=== PATIENT | female | born 1955 | race Caucasian/White ===

== ENCOUNTER 2020-06-08 13:58 | Emergency (ER) | payer OTHER ==
[2020-06-08 14:32] VITALS: BMI 25.4
[2020-06-08 19:12] VITALS: BP 123/68; PULSE 86; TEMP 98.5
== END 2020-06-08 20:05 | disposition home or self-care (01) ==
LOC: JER 13:58
DX: L24.89 Irritant contact dermatitis due to other agents (principal)
CPT/HCPCS: 99283-25

== ENCOUNTER 2021-12-30 10:19 | Inpatient (IN) | payer SELFPAY ==
[2021-12-30 10:48] VITALS: BMI 26.5
[2021-12-30] MEDS ORDERED: SODIUM CHLORIDE 0.9% 500 ML INFUS.BAG IV ONE (11:01)
[2021-12-30] MEDS ORDERED: ACETAMINOPHEN 1000 MG/100 ML BAG IVPB ONE (11:02)
[2021-12-30] MEDS ORDERED: ACETAMINOPHEN INJECTION 100 ML IVPB ONE (11:18)
[2021-12-30 11:32] LABS: HEMATOCRIT 33.5 % (32.4-45.2); HEMOGLOBIN 10.7 GM/dL (10.7-15.3); MCH 26.2 pg (25.7-33.7); MEAN PLT VOLUME 7.5 fl (7.5-11.1); PLATELET COUNT 289 10^3/uL (134-434); RBC 4.09 M/mm3 (3.60-5.2); RDW 14.3 % (11.6-15.6); WHITE BLOOD COUNT 23.8 K/mm3 (4.0-10.0)
[2021-12-30 11:37] LABS: VENOUS BASE EXCESS -5.5 mmol/L (-2-2); VENOUS O2 SATURATION 90.2 % (70-80); VENOUS PCO2 31.5 mmHg (38-52); VENOUS PH 7.383 (7.310-7.410)
[2021-12-30 11:44] LABS: ACTIVATED PTT 31.3 SECONDS (25.2-36.5); INR 1.39 (0.83-1.09)
[2021-12-30 11:49] LABS: ALBUMIN 2.7 g/dl (3.4-5.0); BLOOD UREA NITROGEN 33.4 mg/dL (7-18)
[2021-12-30 11:52] LABS: CREATININE 2.3 mg/dL (0.55-1.3)
[2021-12-30 11:54] LABS: BILIRUBIN,TOTAL 0.4 mg/dL (0.2-1); TOT PROT 6.6 g/dl (6.4-8.2)
[2021-12-30] MEDS ORDERED: VANCOMYCIN 1 GM in D5W (PRE-DOCKED) 1,000 MG/250 ML IVPB ONE (12:00)
[2021-12-30] MEDS ORDERED: PIPERACILLIN/TAZOB 3.375 GM 3.375 GM in DEXTROSE 5%-WATER - 50 ML IVPB ONE (12:02)
[2021-12-30] MEDS ORDERED: PIPERACILLIN/TAZOB 3.375 GM 3.375 GM/50 ML BAG IVPB ONE (12:04)
[2021-12-30] MEDS ORDERED: VANCOMYCIN 1 GRAM (PRE-DOCKED) 1,000 MG/250 ML BAG IVPB ONE (12:04)
[2021-12-30 12:28] LABS: EPI CELLS >36 /uL (0-25.1); HYALINE CASTS 17 /uL (0-3.1); PH,URINE 5.5 (5.0-8.0); URINE APPEARANCE TURBID; URINE BACTERIA >9,000 /uL (0-1359); URINE BILIRUBIN NEGATIVE (NEGATIVE); URINE COLOR DK YELLOW; URINE GLUCOSE (UA) NEGATIVE (NEGATIVE); URINE KETONE TRACE (NEGATIVE); URINE LEUK ESTERASE 3+ (NEGATIVE); URINE NITRITE NEGATIVE (NEGATIVE); URINE PROTEIN 3+ (NEGATIVE); URINE RBC 318 /uL (0-23.9); URINE UROBILINOGEN 0.2 mg/dL (0.2-1.0); URINE WBC 25300 /uL (0-25.8)
[2021-12-30 12:55] LABS: ANISOCYTOSIS 2+; MACROCYTOSIS 0; PLATELET ESTIMATE NORMAL
[2021-12-30] MEDS ORDERED: LACTATED RINGERS SOLUTION 1000 ML INFUS.BAG IV ONE ×3 (13:04→20:47)
[2021-12-30] MEDS ORDERED: NOREPINEPHRINE BITARTRATE 16,000 MCG in SODIUM CHLORIDE 484 ML IV SCH (15:45)
[2021-12-30] MEDS ORDERED: ACETAMINOPHEN 325 MG TABLET (FP) PO PRN (16:03)
[2021-12-30] MEDS ORDERED: SODIUM CHLORIDE 1,000 ML IV SCH (16:15)
[2021-12-30] MEDS ORDERED: PIPERACILLIN/TAZOB 2.25 GM 2.25 GM/50 ML BAG IVPB ONE (17:49)
[2021-12-30] MEDS: PIPERACILLIN/TAZOB 2.25 GM 2.25 GM in DEXTROSE 5%-WATER - 50 ML IVPB SCH (17:56)
[2021-12-30] MEDS ORDERED: ACETAMINOPHEN 325 MG TABLET (FP) ONE (18:26)
[2021-12-30] MEDS ORDERED: SODIUM CHLORIDE 1,000 ML IV STA (18:47)
[2021-12-30] MEDS ORDERED: LACTATED RINGERS SOLUTION 1,000 ML/1,000 ML INFUS.BAG IV STA (18:51)
[2021-12-30] MEDS: LACTATED RINGERS SOLUTION 1,000 ML/1,000 ML INFUS.BAG IV SCH (21:00)
[2021-12-30] MEDS: ARTIFICIAL TEARS (POLYVINYL ALCOHOL) OPTH DROPS OU SCH (22:47)
[2021-12-30] MEDS: GABAPENTIN 100 MG CAPSULE PO SCH (22:47)
[2021-12-30] MEDS: HEPARIN NA (PORCINE) 5,000 UNITS/ML 1ML VIAL SQ SCH (22:47)
[2021-12-30] MEDS: ARIPiprazole 15 MG TABLET PO SCH (22:48)
[2021-12-31] MEDS ORDERED: DEXTROSE 5%-WATER - 50 ML IVPB ONE ×4 (01:34→21:19)
[2021-12-31] MEDS ORDERED: PIPERACILLIN/TAZOBACTAM 2.25 GM VIAL IVPB ONE ×4 (01:34→21:19)
[2021-12-31] MEDS: PIPERACILLIN/TAZOB 2.25 GM 2.25 GM in DEXTROSE 5%-WATER - 50 ML IVPB SCH ×8 (01:40→21:21)
[2021-12-31] MEDS: HEPARIN NA (PORCINE) 5,000 UNITS/ML 1ML VIAL SQ SCH ×3 (05:55→22:32)
[2021-12-31 07:25] LABS: HEMATOCRIT 31.9 % (32.4-45.2); HEMOGLOBIN 10.1 GM/dL (10.7-15.3); MCH 26.2 pg (25.7-33.7); MCHC 31.6 g/dl (32.0-36.0); MEAN CELL VOLUME 82.8 fl (80-96); MEAN PLT VOLUME 8.1 fl (7.5-11.1); PLATELET COUNT 260 10^3/uL (134-434); RBC 3.85 M/mm3 (3.60-5.2); RDW 14.5 % (11.6-15.6); WHITE BLOOD COUNT 20.6 K/mm3 (4.0-10.0)
[2021-12-31 07:36] LABS: BLOOD UREA NITROGEN 23.6 mg/dL (7-18); CALCIUM 8.4 mg/dL (8.5-10.1)
[2021-12-31 07:40] LABS: CREATININE 1.6 mg/dL (0.55-1.3)
[2021-12-31] MEDS ORDERED: PNEUMOC 13-VAL CONJ-DIP CRM/PF 0.5 ML DISP.SYRIN IM ONE (10:00)
[2021-12-31] MEDS: GABAPENTIN 100 MG CAPSULE PO SCH ×2 (10:30→21:09)
[2021-12-31] MEDS: ARIPiprazole 15 MG TABLET PO SCH ×2 (10:31→21:09)
[2021-12-31] MEDS: ARTIFICIAL TEARS (POLYVINYL ALCOHOL) OPTH DROPS OU SCH ×2 (10:33→21:09)
[2021-12-31] MEDS ORDERED: ONDANSETRON 4 MG/2 ML VIAL IVPUSH PRN ×2 (16:03→22:10)
[2021-12-31] MEDS ORDERED: ACETAMINOPHEN 325 MG TABLET (FP) PO PRN (22:10)
[2022-01-01] MEDS ORDERED: DEXTROSE 5%-WATER - 50 ML IVPB ONE ×4 (01:39→20:48)
[2022-01-01] MEDS ORDERED: PIPERACILLIN/TAZOBACTAM 2.25 GM VIAL IVPB ONE ×4 (01:39→20:48)
[2022-01-01] MEDS: LACTATED RINGERS SOLUTION 1,000 ML/1,000 ML INFUS.BAG IV SCH ×4 (02:27→22:38)
[2022-01-01] MEDS: PIPERACILLIN/TAZOB 2.25 GM 2.25 GM in DEXTROSE 5%-WATER - 50 ML IVPB SCH ×4 (02:28→22:36)
[2022-01-01] MEDS: HEPARIN NA (PORCINE) 5,000 UNITS/ML 1ML VIAL SQ SCH ×2 (05:21→22:38)
[2022-01-01 08:22] LABS: BASO % 0.4 % (0-2.0); EOS % 1.9 % (0-4.5); HEMATOCRIT 29.7 % (32.4-45.2); HEMOGLOBIN 9.7 GM/dL (10.7-15.3); LYMPH % 15.7 % (8-40); MCHC 32.7 g/dl (32.0-36.0); MEAN CELL VOLUME 82.4 fl (80-96); MEAN PLT VOLUME 7.5 fl (7.5-11.1); MONO % 12.8 % (3.8-10.2); NEUT % 69.2 % (42.8-82.8); PLATELET COUNT 228 10^3/uL (134-434); RBC 3.61 M/mm3 (3.60-5.2); WHITE BLOOD COUNT 9.2 K/mm3 (4.0-10.0)
[2022-01-01 08:36] LABS: CALCIUM 8.6 mg/dL (8.5-10.1)
[2022-01-01 08:37] LABS: BLOOD UREA NITROGEN 18.1 mg/dL (7-18); MAGNESIUM 1.9 mg/dL (1.8-2.4)
[2022-01-01 08:39] LABS: URIC ACID 3.5 mg/dL (2.6-7.2)
[2022-01-01 08:40] LABS: CREATININE 1.5 mg/dL (0.55-1.3)
[2022-01-01 08:41] LABS: BILIRUBIN,TOTAL 0.3 mg/dL (0.2-1); TOT PROT 5.7 g/dl (6.4-8.2)
[2022-01-01] MEDS: GABAPENTIN 100 MG CAPSULE PO SCH ×2 (09:17→22:38)
[2022-01-01] MEDS: ARIPiprazole 15 MG TABLET PO SCH ×2 (09:17→22:37)
[2022-01-01] MEDS: ARTIFICIAL TEARS (POLYVINYL ALCOHOL) OPTH DROPS OU SCH ×2 (10:03→23:31)
[2022-01-02] MEDS ORDERED: DEXTROSE 5%-WATER - 50 ML IVPB ONE ×4 (03:38→19:17)
[2022-01-02] MEDS ORDERED: PIPERACILLIN/TAZOBACTAM 2.25 GM VIAL IVPB ONE ×3 (03:38→13:51)
[2022-01-02] MEDS: PIPERACILLIN/TAZOB 2.25 GM 2.25 GM in DEXTROSE 5%-WATER - 50 ML IVPB SCH ×3 (03:55→14:23)
[2022-01-02] MEDS: HEPARIN NA (PORCINE) 5,000 UNITS/ML 1ML VIAL SQ SCH ×3 (05:19→21:41)
[2022-01-02 09:33] LABS: BASO % 0.8 % (0-2.0); HEMATOCRIT 29.7 % (32.4-45.2); HEMOGLOBIN 9.7 GM/dL (10.7-15.3); LYMPH % 17.3 % (8-40); MCH 26.9 pg (25.7-33.7); MCHC 32.8 g/dl (32.0-36.0); MEAN CELL VOLUME 82.2 fl (80-96); MEAN PLT VOLUME 7.7 fl (7.5-11.1); MONO % 12.1 % (3.8-10.2); NEUT % 67.8 % (42.8-82.8); PLATELET COUNT 264 10^3/uL (134-434); RBC 3.62 M/mm3 (3.60-5.2); RDW 14.5 % (11.6-15.6); WHITE BLOOD COUNT 8.6 K/mm3 (4.0-10.0)
[2022-01-02 10:04] LABS: ALBUMIN 1.9 g/dl (3.4-5.0); CALCIUM 8.3 mg/dL (8.5-10.1); MAGNESIUM 1.9 mg/dL (1.8-2.4)
[2022-01-02 10:07] LABS: BLOOD UREA NITROGEN 17.2 mg/dL (7-18); CREATININE 1.2 mg/dL (0.55-1.3)
[2022-01-02 10:08] LABS: TOT PROT 5.6 g/dl (6.4-8.2)
[2022-01-02 10:09] LABS: BILIRUBIN,TOTAL 0.3 mg/dL (0.2-1)
[2022-01-02] MEDS: GABAPENTIN 100 MG CAPSULE PO SCH ×2 (10:58→21:40)
[2022-01-02] MEDS: ARIPiprazole 15 MG TABLET PO SCH ×2 (10:59→21:40)
[2022-01-02] MEDS: ARTIFICIAL TEARS (POLYVINYL ALCOHOL) OPTH DROPS OU SCH ×2 (11:01→21:43)
[2022-01-02] MEDS ORDERED: cefTRIAXone SODIUM 1 GM VIAL ONE (19:17)
[2022-01-02] MEDS: CEFTRIAXONE 1 GM in DEXTROSE 5%-WATER - 50 ML IVPB SCH (19:23)
[2022-01-03] MEDS: HEPARIN NA (PORCINE) 5,000 UNITS/ML 1ML VIAL SQ SCH ×3 (06:30→21:01)
[2022-01-03 09:14] LABS: BASO % 0.7 % (0-2.0); EOS % 2.5 % (0-4.5); HEMATOCRIT 33.1 % (32.4-45.2); HEMOGLOBIN 10.7 GM/dL (10.7-15.3); MCH 26.3 pg (25.7-33.7); MCHC 32.2 g/dl (32.0-36.0); MEAN CELL VOLUME 81.6 fl (80-96); MEAN PLT VOLUME 7.5 fl (7.5-11.1); MONO % 10.1 % (3.8-10.2); NEUT % 67.7 % (42.8-82.8); PLATELET COUNT 333 10^3/uL (134-434); RBC 4.05 M/mm3 (3.60-5.2); RDW 14.5 % (11.6-15.6); WHITE BLOOD COUNT 8.7 K/mm3 (4.0-10.0)
[2022-01-03] MEDS ORDERED: DEXTROSE 5%-WATER - 50 ML IVPB ONE (09:14)
[2022-01-03] MEDS ORDERED: cefTRIAXone SODIUM 1 GM VIAL ONE (09:14)
[2022-01-03] MEDS: CEFTRIAXONE 1 GM in DEXTROSE 5%-WATER - 50 ML IVPB SCH (09:48)
[2022-01-03] MEDS: GABAPENTIN 100 MG CAPSULE PO SCH ×2 (09:48→21:02)
[2022-01-03] MEDS: ARIPiprazole 15 MG TABLET PO SCH ×2 (09:50→21:03)
[2022-01-03] MEDS: ARTIFICIAL TEARS (POLYVINYL ALCOHOL) OPTH DROPS OU SCH ×2 (10:11→21:04)
[2022-01-03 10:18] LABS: CALCIUM 8.6 mg/dL (8.5-10.1)
[2022-01-03 13:18] LABS: ALBUMIN 2.2 g/dl (3.4-5.0); BILIRUBIN,TOTAL 0.2 mg/dL (0.2-1); BLOOD UREA NITROGEN 17.4 mg/dL (7-18); CREATININE 0.8 mg/dL (0.55-1.3); TOT PROT 6.3 g/dl (6.4-8.2)
[2022-01-04] MEDS: HEPARIN NA (PORCINE) 5,000 UNITS/ML 1ML VIAL SQ SCH ×3 (05:29→22:46)
[2022-01-04 08:44] LABS: BASO % 1.1 % (0-2.0); EOS % 3.6 % (0-4.5); HEMATOCRIT 30.7 % (32.4-45.2); HEMOGLOBIN 10.1 GM/dL (10.7-15.3); LYMPH % 22.3 % (8-40); MCHC 32.9 g/dl (32.0-36.0); MEAN PLT VOLUME 7.4 fl (7.5-11.1); MONO % 11.4 % (3.8-10.2); NEUT % 61.6 % (42.8-82.8); PLATELET COUNT 321 10^3/uL (134-434); RBC 3.75 M/mm3 (3.60-5.2); RDW 14.3 % (11.6-15.6); WHITE BLOOD COUNT 8.5 K/mm3 (4.0-10.0)
[2022-01-04 08:59] LABS: CHLORIDE 106 mmol/L (98-107); SODIUM 139 mmol/L (136-145)
[2022-01-04 09:01] LABS: CALCIUM 8.7 mg/dL (8.5-10.1)
[2022-01-04 09:02] LABS: ALBUMIN 2.1 g/dl (3.4-5.0); ANION GAP 6 MMOL/L (8-16); BLOOD UREA NITROGEN 20.3 mg/dL (7-18); CO2 27 mmol/L (21-32); GLUCOSE,RANDOM 84 mg/dL (74-106); MAGNESIUM 1.9 mg/dL (1.8-2.4)
[2022-01-04 09:05] LABS: CREATININE 1.1 mg/dL (0.55-1.3); SGOT/AST 17 U/L (15-37); SGPT/ALT 24 U/L (13-61)
[2022-01-04 09:07] LABS: BILIRUBIN,TOTAL < 0.1 mg/dL (0.2-1); TOT PROT 5.8 g/dl (6.4-8.2)
[2022-01-04 09:08] LABS: ALK PHOS 129 U/L (45-117)
[2022-01-04] MEDS ORDERED: DEXTROSE 5%-WATER - 50 ML IVPB ONE (12:17)
[2022-01-04] MEDS ORDERED: cefTRIAXone SODIUM 1 GM VIAL ONE (12:17)
[2022-01-04] MEDS: GABAPENTIN 100 MG CAPSULE PO SCH ×2 (12:29→22:46)
[2022-01-04] MEDS: ARTIFICIAL TEARS (POLYVINYL ALCOHOL) OPTH DROPS OU SCH ×2 (12:30→22:48)
[2022-01-04] MEDS: ARIPiprazole 15 MG TABLET PO SCH ×2 (12:30→22:48)
[2022-01-04] MEDS: CEFTRIAXONE 1 GM in DEXTROSE 5%-WATER - 50 ML IVPB SCH (12:30)
[2022-01-05] MEDS: HEPARIN NA (PORCINE) 5,000 UNITS/ML 1ML VIAL SQ SCH ×2 (06:18→15:15)
[2022-01-05] MEDS ORDERED: CEFTRIAXONE 1 GM in DEXTROSE 5%-WATER - 50 ML IVPB SCH (10:00)
[2022-01-05] MEDS ORDERED: cefTRIAXone SODIUM 1 GM VIAL ONE (10:15)
[2022-01-05] MEDS ORDERED: DEXTROSE 5%-WATER - 50 ML IVPB ONE (10:16)
[2022-01-05] MEDS: GABAPENTIN 100 MG CAPSULE PO SCH (10:47)
[2022-01-05] MEDS: ARIPiprazole 15 MG TABLET PO SCH (10:48)
[2022-01-05] MEDS: ARTIFICIAL TEARS (POLYVINYL ALCOHOL) OPTH DROPS OU SCH (10:48)
[2022-01-05 12:08] LABS: SARS-CoV-2 NAA Not Detected (Not Detected)
[2022-01-05 12:41] LABS: BASO % 0.7 % (0-2.0); EOS % 2.4 % (0-4.5); HEMATOCRIT 34.3 % (32.4-45.2); HEMOGLOBIN 11.3 GM/dL (10.7-15.3); LYMPH % 19.6 % (8-40); MCH 27.2 pg (25.7-33.7); MCHC 33.1 g/dl (32.0-36.0); MEAN CELL VOLUME 82.4 fl (80-96); MONO % 8.3 % (3.8-10.2); PLATELET COUNT 384 10^3/uL (134-434); RBC 4.16 M/mm3 (3.60-5.2)
[2022-01-05 13:15] LABS: BLOOD UREA NITROGEN 19.6 mg/dL (7-18); CALCIUM 9.2 mg/dL (8.5-10.1); MAGNESIUM 1.9 mg/dL (1.8-2.4)
[2022-01-05 13:18] LABS: CREATININE 1.1 mg/dL (0.55-1.3)
[2022-01-05 13:19] LABS: BILIRUBIN,TOTAL 0.2 mg/dL (0.2-1)
[2022-01-05 13:22] LABS: ALBUMIN 2.6 g/dl (3.4-5.0)
[2022-01-05 15:05] VITALS: BP 109/68; PULSE 81; TEMP 97.7
== END 2022-01-05 17:30 | disposition home or self-care (01) | DRG 469 ==
LOC: JER 10:19 → JERBED 12:43 → J4W 22:37 → J7W 12-31 22:15
PROVIDERS: ADMIT Internal Medicine; ATTEND Nurse Practitioner Family
PROC: 02HV33Z Insertion of Infusion Device into Superior Vena Cava, Percutaneous Approach (ICD-10-PCS; principal; 2022-01-03)
DX: N17.9 Acute kidney failure, unspecified (principal); N13.6 Pyonephrosis; I24.8 Other forms of acute ischemic heart disease; B96.1 Klebsiella pneumoniae [K. pneumoniae] as the cause of diseases classified elsewhere; Z93.2 Ileostomy status
CPT/HCPCS: 36415; 71045-TC-FY; 74176-TC; 76775-TC; 80048; 80053; 81003; 82803; 83605; 83735; 83970; 84443; 84484; 84550; 85025; 85027; 85610; 85730; 87040; 87086; 87186; 87804; 93005; 93010; 97116-GP; 97162-GP; 99285-25; C9803; J1644; U0003; U0005

== ENCOUNTER 2022-04-18 22:15 | Inpatient (IN) | payer SELFPAY ==
[2022-04-18 22:48] VITALS: BMI 26.2
[2022-04-18] MEDS ORDERED: SODIUM CHLORIDE 1,946 ML IV ONE (23:34)
[2022-04-18] MEDS ORDERED: PIPERACILLIN/TAZOB 4.5 GM 4.5 GM in DEXTROSE 5%-WATER 100 ML IVPB ONE (23:35)
[2022-04-18] MEDS ORDERED: VANCOMYCIN 1 GM in D5W (PRE-DOCKED) 1,000 MG/250 ML IVPB ONE (23:35)
[2022-04-19] MEDS ORDERED: PIPERACILLIN/TAZOB 4.5 GM 4.5 GM/100 ML BAG IVPB ONE (00:07)
[2022-04-19 01:01] LABS: BASO % 0.8 % (0-2.0); EOS % 2.3 % (0-4.5); HEMATOCRIT 36.4 % (32.4-45.2); HEMOGLOBIN 12.1 GM/dL (10.7-15.3); LYMPH % 21.3 % (8-40); MCH 27.2 pg (25.7-33.7); MCHC 33.3 g/dl (32.0-36.0); MEAN CELL VOLUME 81.7 fl (80-96); MEAN PLT VOLUME 7.4 fl (7.5-11.1); MONO % 9.4 % (3.8-10.2); NEUT % 66.2 % (42.8-82.8); PLATELET COUNT 261 10^3/uL (134-434); RBC 4.46 M/mm3 (3.60-5.2); RDW 15.4 % (11.6-15.6); WHITE BLOOD COUNT 10.7 K/mm3 (4.0-10.0)
[2022-04-19 01:06] LABS: INR 1.05 (0.83-1.09); PROTHROMBIN TIME (PATIENT) 12.1 SEC (9.7-13.0)
[2022-04-19 01:08] LABS: ACTIVATED PTT 26.6 SECONDS (25.2-36.5)
[2022-04-19 01:18] LABS: CALCIUM 9.2 mg/dL (8.5-10.1)
[2022-04-19 01:19] LABS: ALBUMIN 3.3 g/dl (3.4-5.0); BLOOD UREA NITROGEN 21.1 mg/dL (7-18)
[2022-04-19 01:22] LABS: CREATININE 1.5 mg/dL (0.55-1.3)
[2022-04-19 01:23] LABS: BILIRUBIN,TOTAL 0.2 mg/dL (0.2-1)
[2022-04-19 01:24] LABS: TOT PROT 7.1 g/dl (6.4-8.2)
[2022-04-19 02:10] LABS: VENOUS BASE EXCESS -5.1 mmol/L (-2-2); VENOUS O2 SATURATION 51.5 % (70-80); VENOUS PCO2 45.2 mmHg (38-52); VENOUS PH 7.294 (7.310-7.410)
[2022-04-19] MEDS ORDERED: VANCOMYCIN 1 GRAM (PRE-DOCKED) 1,000 MG/250 ML BAG IVPB ONE (03:07)
[2022-04-19] MEDS ORDERED: SODIUM CHLORIDE 1,000 ML IV SCH (08:30)
[2022-04-19 10:24] LABS: EPI CELLS 1 /uL (0-25.1); HYALINE CASTS 0 /uL (0-3.1); URINE APPEARANCE CLOUDY; URINE BACTERIA 94 /uL (0-1359); URINE BILIRUBIN NEGATIVE (NEGATIVE); URINE COLOR YELLOW; URINE GLUCOSE (UA) NEGATIVE (NEGATIVE); URINE KETONE NEGATIVE (NEGATIVE); URINE LEUK ESTERASE 3+ (NEGATIVE); URINE NITRITE NEGATIVE (NEGATIVE); URINE PROTEIN TRACE (NEGATIVE); URINE RBC 32 /uL (0-23.9); URINE UROBILINOGEN 0.2 mg/dL (0.2-1.0); URINE WBC 2430 /uL (0-25.8)
[2022-04-19] MEDS ORDERED: NYSTATIN 100,000 UNIT/GM TOPICAL CREAM 15 GM TUBE TP SCH (12:30)
[2022-04-19] MEDS: HEPARIN NA (PORCINE) 5,000 UNITS/ML 1ML VIAL SQ SCH ×2 (15:09→21:32)
[2022-04-19] MEDS: NYSTATIN 100,000 UNIT/GM TOPICAL CREAM 15 GM TUBE TP SCH ×2 (15:09→21:32)
[2022-04-20] MEDS: HEPARIN NA (PORCINE) 5,000 UNITS/ML 1ML VIAL SQ SCH ×3 (06:06→23:02)
[2022-04-20] MEDS ORDERED: DEXTROSE 5%-WATER - 50 ML IVPB ONE (09:26)
[2022-04-20] MEDS ORDERED: cefTRIAXone SODIUM 1 GM VIAL ONE (09:26)
[2022-04-20] MEDS: CEFTRIAXONE 1 GM in DEXTROSE 5%-WATER - 50 ML IVPB SCH (09:27)
[2022-04-20 09:58] LABS: BASO % 0.7 % (0-2.0); EOS % 3.5 % (0-4.5); HEMATOCRIT 34.9 % (32.4-45.2); HEMOGLOBIN 11.3 GM/dL (10.7-15.3); LYMPH % 25.4 % (8-40); MCH 26.8 pg (25.7-33.7); MCHC 32.5 g/dl (32.0-36.0); MEAN CELL VOLUME 82.6 fl (80-96); MEAN PLT VOLUME 7.6 fl (7.5-11.1); MONO % 9.4 % (3.8-10.2); PLATELET COUNT 243 10^3/uL (134-434); RBC 4.22 M/mm3 (3.60-5.2); RDW 15.7 % (11.6-15.6); WHITE BLOOD COUNT 8.3 K/mm3 (4.0-10.0)
[2022-04-20] MEDS ORDERED: PNEUMOC 20-VAL CONJ-DIP CRM/PF 0.5 ML SYRINGE IM ONE (10:00)
[2022-04-20] MEDS: NYSTATIN 100,000 UNIT/GM TOPICAL CREAM 15 GM TUBE TP SCH ×2 (11:32→23:02)
[2022-04-20 12:11] LABS: ALBUMIN 2.7 g/dl (3.4-5.0); CALCIUM 8.9 mg/dL (8.5-10.1)
[2022-04-20 12:13] LABS: MAGNESIUM 1.9 mg/dL (1.8-2.4)
[2022-04-20 12:14] LABS: CREATININE 1.3 mg/dL (0.55-1.3); PHOSPHOROUS 3.5 mg/dL (2.5-4.9)
[2022-04-20 12:15] LABS: BILIRUBIN,TOTAL 0.4 mg/dL (0.2-1)
[2022-04-21] MEDS: HEPARIN NA (PORCINE) 5,000 UNITS/ML 1ML VIAL SQ SCH ×3 (06:22→21:46)
[2022-04-21] MEDS ORDERED: cefTRIAXone SODIUM 1 GM VIAL ONE (09:10)
[2022-04-21] MEDS ORDERED: DEXTROSE 5%-WATER - 50 ML IVPB ONE (09:10)
[2022-04-21] MEDS: CEFTRIAXONE 1 GM in DEXTROSE 5%-WATER - 50 ML IVPB SCH (09:46)
[2022-04-21] MEDS: NYSTATIN 100,000 UNIT/GM TOPICAL CREAM 15 GM TUBE TP SCH ×2 (09:47→21:46)
[2022-04-21 09:53] LABS: BASO % 0.7 % (0-2.0); EOS % 3.8 % (0-4.5); HEMATOCRIT 37.3 % (32.4-45.2); HEMOGLOBIN 12.2 GM/dL (10.7-15.3); MCH 26.9 pg (25.7-33.7); MCHC 32.6 g/dl (32.0-36.0); MEAN CELL VOLUME 82.4 fl (80-96); MEAN PLT VOLUME 7.6 fl (7.5-11.1); MONO % 9.6 % (3.8-10.2); NEUT % 58.9 % (42.8-82.8); PLATELET COUNT 259 10^3/uL (134-434); RBC 4.52 M/mm3 (3.60-5.2); RDW 15.5 % (11.6-15.6); WHITE BLOOD COUNT 7.8 K/mm3 (4.0-10.0)
[2022-04-21 10:11] LABS: CALCIUM 9.2 mg/dL (8.5-10.1)
[2022-04-21 10:12] LABS: BLOOD UREA NITROGEN 17.5 mg/dL (7-18)
[2022-04-21 10:14] LABS: CREATININE 1.2 mg/dL (0.55-1.3)
[2022-04-22] MEDS: HEPARIN NA (PORCINE) 5,000 UNITS/ML 1ML VIAL SQ SCH ×3 (05:27→22:56)
[2022-04-22] MEDS ORDERED: cefTRIAXone SODIUM 1 GM VIAL ONE (10:10)
[2022-04-22] MEDS ORDERED: DEXTROSE 5%-WATER - 50 ML IVPB ONE (10:10)
[2022-04-22] MEDS: CEFTRIAXONE 1 GM in DEXTROSE 5%-WATER - 50 ML IVPB SCH (10:53)
[2022-04-22] MEDS: NYSTATIN 100,000 UNIT/GM TOPICAL CREAM 15 GM TUBE TP SCH ×2 (10:54→23:02)
[2022-04-23] MEDS: HEPARIN NA (PORCINE) 5,000 UNITS/ML 1ML VIAL SQ SCH ×3 (05:36→23:37)
[2022-04-23 08:53] LABS: BASO % 0.9 % (0-2.0); EOS % 5.2 % (0-4.5); HEMATOCRIT 36.8 % (32.4-45.2); HEMOGLOBIN 12.2 GM/dL (10.7-15.3); LYMPH % 29.1 % (8-40); MCH 27.1 pg (25.7-33.7); MEAN CELL VOLUME 82.1 fl (80-96); MEAN PLT VOLUME 7.4 fl (7.5-11.1); MONO % 9.3 % (3.8-10.2); NEUT % 55.5 % (42.8-82.8); PLATELET COUNT 286 10^3/uL (134-434); RBC 4.48 M/mm3 (3.60-5.2); RDW 14.9 % (11.6-15.6); WHITE BLOOD COUNT 8.4 K/mm3 (4.0-10.0)
[2022-04-23 09:36] LABS: BLOOD UREA NITROGEN 26.8 mg/dL (7-18); CREATININE 1.4 mg/dL (0.55-1.3)
[2022-04-23 09:38] LABS: BILIRUBIN,TOTAL 0.2 mg/dL (0.2-1); TOT PROT 6.9 g/dl (6.4-8.2)
[2022-04-23 09:42] LABS: CALCIUM 9.4 mg/dL (8.5-10.1)
[2022-04-23] MEDS ORDERED: cefTRIAXone SODIUM 1 GM VIAL ONE (10:05)
[2022-04-23] MEDS ORDERED: DEXTROSE 5%-WATER - 50 ML IVPB ONE (10:05)
[2022-04-23] MEDS: CEFTRIAXONE 1 GM in DEXTROSE 5%-WATER - 50 ML IVPB SCH (10:47)
[2022-04-23] MEDS: NYSTATIN 100,000 UNIT/GM TOPICAL CREAM 15 GM TUBE TP SCH ×2 (10:49→23:37)
[2022-04-23] MEDS ORDERED: SODIUM CHLORIDE 0.9% 500 ML INFUS.BAG IV ONE (13:19)
[2022-04-24] MEDS: HEPARIN NA (PORCINE) 5,000 UNITS/ML 1ML VIAL SQ SCH (05:41)
[2022-04-24] MEDS ORDERED: cefTRIAXone SODIUM 1 GM VIAL ONE (11:10)
[2022-04-24] MEDS ORDERED: DEXTROSE 5%-WATER - 50 ML IVPB ONE (11:10)
[2022-04-24] MEDS: CEFTRIAXONE 1 GM in DEXTROSE 5%-WATER - 50 ML IVPB SCH (11:14)
[2022-04-24] MEDS: NYSTATIN 100,000 UNIT/GM TOPICAL CREAM 15 GM TUBE TP SCH (11:15)
[2022-04-24 13:04] VITALS: BP 128/61; PULSE 80; TEMP 98.2
== END 2022-04-24 12:40 | disposition home or self-care (01) | DRG 252 ==
LOC: JER 22:15 → JERBED 04-19 05:05 → J5S 04-19 10:03 → J5WEST-2 04-19 15:39 → J5S 04-19 15:40
PROVIDERS: ADMIT Internal Medicine; ATTEND Internal Medicine
DX: K94.13 Enterostomy malfunction (principal); N17.9 Acute kidney failure, unspecified; N13.30 Unspecified hydronephrosis; L03.311 Cellulitis of abdominal wall; N39.0 Urinary tract infection, site not specified; K51.90 Ulcerative colitis, unspecified, without complications; F42.9 Obsessive-compulsive disorder, unspecified; Y83.8 Other surgical procedures as the cause of abnormal reaction of the patient, or of later complication, without mention of misadventure at the time of the procedure
CPT/HCPCS: 36415; 71045-TC-FY; 74176-TC; 76775-TC; 80048; 80053; 81003; 82436; 82553; 82803; 83605; 83735; 83935; 84100; 84133; 84300; 84443; 85025; 85610; 85730; 86850; 86900; 86901; 87040; 87086; 87186; 90677; 93005; 93010; 97116-GP; 99285-25; C9803-CS; J1644; U0003; U0005

== ENCOUNTER 2022-04-26 08:32 | Emergency (ER) | payer SELFPAY ==
[2022-04-26 08:53] VITALS: BMI 26.2
[2022-04-26 11:00] VITALS: BP 135/77; PULSE 98; TEMP 98.3
== END 2022-04-26 10:59 | disposition home or self-care (01) ==
LOC: JER 08:32
DX: K94.09 Other complications of colostomy (principal)
CPT/HCPCS: 99283-25

== ENCOUNTER 2022-05-09 23:15 | Emergency (ER) | payer SELFPAY ==
[2022-05-10 00:42] VITALS: BMI 32.0
[2022-05-10 09:48] VITALS: BP 117/72; PULSE 74; TEMP 98.4
== END 2022-05-10 09:45 | disposition home or self-care (01) ==
LOC: JER 23:15
DX: K94.09 Other complications of colostomy (principal)
CPT/HCPCS: 99283-25

== ENCOUNTER 2022-06-17 12:51 | Emergency (ER) | payer SELFPAY ==
[2022-06-17 13:07] VITALS: RESP 20; BMI 27.4
[2022-06-17 17:23] VITALS: BP 121/71; PULSE 81; TEMP 97.5
== END 2022-06-17 17:23 | disposition home or self-care (01) ==
LOC: JER 12:51
DX: K94.13 Enterostomy malfunction (principal); R21 Rash and other nonspecific skin eruption; Z43.2 Encounter for attention to ileostomy
CPT/HCPCS: 99281-25

== ENCOUNTER 2022-08-21 20:15 | Inpatient (IN) | payer SELFPAY ==
[2022-08-21 21:42] LABS: BASO % 0.8 % (0-2.0); EOS % 0.4 % (0-4.5); HEMATOCRIT 42.6 % (32.4-45.2); LYMPH % 13.5 % (8-40); MCH 27.2 pg (25.7-33.7); MCHC 32.8 g/dl (32.0-36.0); MEAN CELL VOLUME 82.8 fl (80-96); MEAN PLT VOLUME 7.1 fl (7.5-11.1); MONO % 6.8 % (3.8-10.2); NEUT % 78.5 % (42.8-82.8); PLATELET COUNT 325 10^3/uL (134-434); RBC 5.14 M/mm3 (3.60-5.2); RDW 14.9 % (11.6-15.6); WHITE BLOOD COUNT 14.5 K/mm3 (4.0-10.0)
[2022-08-21 22:09] LABS: ALBUMIN 3.5 g/dl (3.4-5.0); BLOOD UREA NITROGEN 22.8 mg/dL (7-18)
[2022-08-21 22:12] LABS: CREATININE 1.3 mg/dL (0.55-1.3)
[2022-08-21 22:14] LABS: BILIRUBIN,TOTAL 0.3 mg/dL (0.2-1); TOT PROT 7.5 g/dl (6.4-8.2)
[2022-08-22 01:09] LABS: EPI CELLS 24 /uL (0-25.1); HYALINE CASTS 1 /uL (0-3.1); PH,URINE 5.5 (5.0-8.0); URINE APPEARANCE CLEAR; URINE BACTERIA 11 /uL (0-1359); URINE BILIRUBIN NEGATIVE (NEGATIVE); URINE COLOR YELLOW; URINE GLUCOSE (UA) NEGATIVE (NEGATIVE); URINE KETONE NEGATIVE (NEGATIVE); URINE LEUK ESTERASE 2+ (NEGATIVE); URINE NITRITE NEGATIVE (NEGATIVE); URINE PROTEIN 2+ (NEGATIVE); URINE RBC 30 /uL (0-23.9); URINE UROBILINOGEN 0.2 mg/dL (0.2-1.0); URINE WBC 355 /uL (0-25.8)
[2022-08-22] MEDS ORDERED: SODIUM CHLORIDE 0.9% 500 ML INFUS.BAG IV ONE (01:16)
[2022-08-22] MEDS ORDERED: PIPERACILLIN/TAZOB 3.375 GM 3.375 GM in DEXTROSE 5%-WATER - 50 ML IVPB ONE (01:16)
[2022-08-22] MEDS ORDERED: PIPERACILLIN/TAZOB 3.375 GM 3.375 GM/50 ML BAG IVPB ONE (01:29)
[2022-08-22] MEDS ORDERED: ACETAMINOPHEN 1000 MG/100 ML BAG IVPB PRN ×2 (02:22→18:08)
[2022-08-22 04:54] LABS: URINE CRYSTALS FEW /hpf
[2022-08-22 05:55] VITALS: BMI 27.1
[2022-08-22] MEDS: INSULIN SLIDING SCALE (NOVOLOG) 1 VIAL SQ SCH ×4 (06:23→21:48)
[2022-08-22] MEDS: GABAPENTIN 100 MG CAPSULE PO SCH ×3 (08:58→21:47)
[2022-08-22] MEDS: PIPERACILLIN/TAZOB 3.375 GM 3.375 GM in DEXTROSE 5%-WATER - 50 ML IVPB SCH ×3 (09:21→18:15)
[2022-08-22] MEDS ORDERED: TRIMETHOBENZAMIDE HCL 200MG/2ML INJ IM PRN ×2 (09:30→18:08)
[2022-08-22] MEDS ORDERED: DEXTROSE 5%-NORMAL SALINE 1,000 ML IV SCH (09:30)
[2022-08-22 10:41] LABS: BASO % 0.5 % (0-2.0); EOS % 1.6 % (0-4.5); HEMOGLOBIN 12.1 GM/dL (10.7-15.3); LYMPH % 23.6 % (8-40); MCH 26.4 pg (25.7-33.7); MCHC 31.8 g/dl (32.0-36.0); MEAN CELL VOLUME 83.2 fl (80-96); MEAN PLT VOLUME 7.4 fl (7.5-11.1); MONO % 10.3 % (3.8-10.2); PLATELET COUNT 287 10^3/uL (134-434); RBC 4.57 M/mm3 (3.60-5.2); RDW 14.7 % (11.6-15.6); WHITE BLOOD COUNT 9.3 K/mm3 (4.0-10.0)
[2022-08-22 10:50] LABS: INR 1.13 (0.83-1.09)
[2022-08-22 10:53] LABS: ACTIVATED PTT 27.8 SECONDS (25.2-36.5)
[2022-08-22 11:06] LABS: BLOOD UREA NITROGEN 20.4 mg/dL (7-18); CALCIUM 9.4 mg/dL (8.5-10.1)
[2022-08-22 11:10] LABS: CREATININE 1.3 mg/dL (0.55-1.3); PHOSPHOROUS 4.2 mg/dL (2.5-4.9)
[2022-08-22] MEDS ORDERED: BUPIVACAINE HCL/PF 0.25% (2.5MG/ML) 10 ML VIAL ONE (14:43)
[2022-08-22] MEDS ORDERED: ONDANSETRON 4 MG/2 ML VIAL ONE (15:52)
[2022-08-22] MEDS ORDERED: MIDAZOLAM HCL 2 MG/2 ML SINGLE DOSE VIAL ONE (15:52)
[2022-08-22] MEDS ORDERED: PROPOFOL 20 ML ONE (15:52)
[2022-08-22] MEDS ORDERED: DEXAMETHASONE SOD PHOSPHATE 4 MG/1 ML VIAL ONE (15:52)
[2022-08-22] MEDS ORDERED: ROCURONIUM BROMIDE 50 MG/5 ML SYRINGE ONE (15:52)
[2022-08-22] MEDS ORDERED: ARIPiprazole 15 MG TABLET PO SCH (16:00)
[2022-08-22] MEDS ORDERED: BUPIVACAINE HCL/PF 0.25% (2.5MG/ML) 10 ML VIAL IJ ONE (16:54)
[2022-08-22] MEDS ORDERED: NEOSTIGMINE METHYLSULFATE 0.5 MG/ML - 10 ML MDV ONE (17:12)
[2022-08-22] MEDS ORDERED: GLYCOPYRROLATE 0.2 MG/1 ML VIAL ONE (17:12)
[2022-08-22] MEDS ORDERED: BENZOIN/ALOE VERA/STORAX/TOLU 58 ML BOTTLE ONE (17:13)
[2022-08-22] MEDS ORDERED: NALOXONE HCL 0.4 MG/ML VIAL ONE (17:13)
[2022-08-22] MEDS ORDERED: ONDANSETRON 4 MG/2 ML VIAL IVPUSH PRN ×2 (17:33→18:08)
[2022-08-22] MEDS ORDERED: LACTATED RINGERS SOLUTION 1,000 ML IV SCH (17:45)
[2022-08-22] MEDS ORDERED: ACETAMINOPHEN INJECTION 100 ML IVPB ONE (18:24)
[2022-08-22] MEDS: LACTATED RINGERS SOLUTION 1,000 ML IV SCH (21:47)
[2022-08-23] MEDS: ARIPiprazole 15 MG TABLET PO SCH ×2 (06:00→17:17)
[2022-08-23] MEDS: INSULIN SLIDING SCALE (NOVOLOG) 1 VIAL SQ SCH ×4 (06:05→22:28)
[2022-08-23 08:17] LABS: HEMATOCRIT 36.7 % (32.4-45.2); HEMOGLOBIN 12.1 GM/dL (10.7-15.3); MCH 27.5 pg (25.7-33.7); MCHC 32.8 g/dl (32.0-36.0); MEAN CELL VOLUME 83.8 fl (80-96); MEAN PLT VOLUME 7.4 fl (7.5-11.1); PLATELET COUNT 248 10^3/uL (134-434); RBC 4.38 M/mm3 (3.60-5.2); RDW 14.5 % (11.6-15.6); WHITE BLOOD COUNT 8.7 K/mm3 (4.0-10.0)
[2022-08-23 08:40] LABS: BLOOD UREA NITROGEN 12.8 mg/dL (7-18)
[2022-08-23 08:41] LABS: CALCIUM 8.7 mg/dL (8.5-10.1)
[2022-08-23 08:42] LABS: BILIRUBIN,TOTAL 0.4 mg/dL (0.2-1); PHOSPHOROUS 3.8 mg/dL (2.5-4.9)
[2022-08-23 08:43] LABS: CREATININE 1.1 mg/dL (0.55-1.3)
[2022-08-23 08:47] LABS: ALBUMIN 2.8 g/dl (3.4-5.0)
[2022-08-23] MEDS: GABAPENTIN 100 MG CAPSULE PO SCH ×2 (09:12→22:30)
[2022-08-23] MEDS: LACTATED RINGERS SOLUTION 1,000 ML IV SCH ×2 (11:26→19:05)
[2022-08-23] MEDS ORDERED: INSULIN (NOVOLOG) ASPART 100 UNITS/ML 10ML VIAL ONE (21:41)
[2022-08-24] MEDS: ARIPiprazole 15 MG TABLET PO SCH ×2 (06:05→16:59)
[2022-08-24] MEDS: INSULIN SLIDING SCALE (NOVOLOG) 1 VIAL SQ SCH ×2 (07:06→12:24)
[2022-08-24 09:05] LABS: BASO % 0.7 % (0-2.0); EOS % 3.3 % (0-4.5); HEMATOCRIT 36.4 % (32.4-45.2); HEMOGLOBIN 11.9 GM/dL (10.7-15.3); MCH 27.3 pg (25.7-33.7); MCHC 32.8 g/dl (32.0-36.0); MEAN CELL VOLUME 83.4 fl (80-96); MEAN PLT VOLUME 7.1 fl (7.5-11.1); MONO % 10.8 % (3.8-10.2); NEUT % 61.2 % (42.8-82.8); PLATELET COUNT 233 10^3/uL (134-434); RBC 4.36 M/mm3 (3.60-5.2); RDW 14.9 % (11.6-15.6); WHITE BLOOD COUNT 8.1 K/mm3 (4.0-10.0)
[2022-08-24 09:30] LABS: CALCIUM 9.2 mg/dL (8.5-10.1)
[2022-08-24 09:31] LABS: ALBUMIN 2.6 g/dl (3.4-5.0); BLOOD UREA NITROGEN 9.6 mg/dL (7-18)
[2022-08-24 09:34] LABS: CREATININE 1.1 mg/dL (0.55-1.3); PHOSPHOROUS 4.1 mg/dL (2.5-4.9)
[2022-08-24 09:35] LABS: BILIRUBIN,TOTAL 0.4 mg/dL (0.2-1); TOT PROT 5.8 g/dl (6.4-8.2)
[2022-08-24] MEDS: GABAPENTIN 100 MG CAPSULE PO SCH ×2 (10:19→21:52)
[2022-08-24] MEDS: LACTATED RINGERS SOLUTION 1,000 ML IV SCH (10:21)
[2022-08-24] MEDS ORDERED: oxyCODONE HCL 5 MG TABLET PO PRN (16:27)
[2022-08-24] MEDS ORDERED: morphine CARPU-JECT 2 MG/1 ML DISP.SYRIN IVPUSH PRN (16:27)
[2022-08-25] MEDS: ARIPiprazole 15 MG TABLET PO SCH ×2 (05:12→17:17)
[2022-08-25] MEDS: GABAPENTIN 100 MG CAPSULE PO SCH ×2 (10:31→21:25)
[2022-08-26] MEDS: ARIPiprazole 15 MG TABLET PO SCH ×2 (05:48→16:09)
[2022-08-26] MEDS: GABAPENTIN 100 MG CAPSULE PO SCH ×2 (09:57→22:01)
[2022-08-27] MEDS: ARIPiprazole 15 MG TABLET PO SCH ×2 (06:22→17:20)
[2022-08-27] MEDS: GABAPENTIN 100 MG CAPSULE PO SCH ×2 (09:56→21:49)
[2022-08-28] MEDS: ARIPiprazole 15 MG TABLET PO SCH ×2 (06:58→15:29)
[2022-08-28] MEDS: GABAPENTIN 100 MG CAPSULE PO SCH ×2 (11:06→21:21)
[2022-08-28] MEDS ORDERED: ACETAMINOPHEN 325 MG TABLET (FP) PO PRN (14:59)
[2022-08-29] MEDS: ARIPiprazole 15 MG TABLET PO SCH ×2 (06:00→15:09)
[2022-08-29 10:13] LABS: BASO % 0.8 % (0-2.0); EOS % 3.9 % (0-4.5); HEMATOCRIT 39.1 % (32.4-45.2); HEMOGLOBIN 12.8 GM/dL (10.7-15.3); LYMPH % 29.6 % (8-40); MCH 27.3 pg (25.7-33.7); MCHC 32.8 g/dl (32.0-36.0); MEAN CELL VOLUME 83.1 fl (80-96); MEAN PLT VOLUME 7.4 fl (7.5-11.1); MONO % 7.6 % (3.8-10.2); NEUT % 58.1 % (42.8-82.8); PLATELET COUNT 279 10^3/uL (134-434); RBC 4.71 M/mm3 (3.60-5.2); RDW 14.9 % (11.6-15.6)
[2022-08-29 10:38] LABS: CALCIUM 9.4 mg/dL (8.5-10.1)
[2022-08-29 10:39] LABS: BLOOD UREA NITROGEN 26.2 mg/dL (7-18)
[2022-08-29] MEDS: GABAPENTIN 100 MG CAPSULE PO SCH ×2 (10:41→21:39)
[2022-08-29 10:42] LABS: CREATININE 1.3 mg/dL (0.55-1.3)
[2022-08-30] MEDS: ARIPiprazole 15 MG TABLET PO SCH (05:44)
[2022-08-30] MEDS: GABAPENTIN 100 MG CAPSULE PO SCH (10:22)
[2022-08-30 15:10] VITALS: BP 126/70; PULSE 94; RESP 18; TEMP 97.1
== END 2022-08-30 17:07 | DRG 263 ==
LOC: JER 20:15 → JERBED 08-22 01:25 → J8W 08-22 04:39
PROVIDERS: ADMIT Internal Medicine; ATTEND Internal Medicine
PROC: 0FT44ZZ Resection of Gallbladder, Percutaneous Endoscopic Approach (ICD-10-PCS; principal; 2022-08-22 15:00)
DX: K80.00 Calculus of gallbladder with acute cholecystitis without obstruction (principal); K82.1 Hydrops of gallbladder; F41.9 Anxiety disorder, unspecified; F42.9 Obsessive-compulsive disorder, unspecified; E55.9 Vitamin D deficiency, unspecified
CPT/HCPCS: 0241U-QW; 36415; 71045-TC-FY; 74177-TC; 76705-TC; 80048; 80053; 81003; 82962; 83690; 83735; 84100; 85025; 85027; 85610; 85730; 86140; 86850; 86900; 86901; 87045; 87046; 87086; 87205; 87209; 87324; 87449; 88304-TC; 93005; 93010; 94760; 97116-GP; 97161-GP; 99285-25; C9803-CS; Q9967; U0003; U0005

== ENCOUNTER 2022-12-11 21:41 | Inpatient (IN) | payer SELFPAY ==
[2022-12-11 21:55] VITALS: BMI 25.8
[2022-12-11] MEDS ORDERED: ONDANSETRON 4 MG/2 ML VIAL IVPUSH ONE (23:53)
[2022-12-11] MEDS ORDERED: SODIUM CHLORIDE 0.9% 500 ML INFUS.BAG IV ONE (23:53)
[2022-12-12] MEDS ORDERED: ONDANSETRON 4 MG/2 ML VIAL ONE ×2 (00:13→02:01)
[2022-12-12 00:40] LABS: BASO % 0.6 % (0-2.0); EOS % 0.8 % (0-4.5); HEMATOCRIT 44.7 % (32.4-45.2); HEMOGLOBIN 14.3 GM/dL (10.7-15.3); LYMPH % 13.3 % (8-40); MCH 26.7 pg (25.7-33.7); MCHC 32.1 g/dl (32.0-36.0); MEAN CELL VOLUME 83.1 fl (80-96); MEAN PLT VOLUME 7.2 fl (7.5-11.1); MONO % 8.5 % (3.8-10.2); NEUT % 76.8 % (42.8-82.8); PLATELET COUNT 311 10^3/uL (134-434); RBC 5.38 M/mm3 (3.60-5.2); RDW 14.8 % (11.6-15.6); WHITE BLOOD COUNT 15.9 K/mm3 (4.0-10.0)
[2022-12-12 01:02] LABS: BLOOD UREA NITROGEN 20.7 mg/dL (7-18); CALCIUM 9.8 mg/dL (8.5-10.1)
[2022-12-12 01:03] LABS: ALBUMIN 3.5 g/dl (3.4-5.0)
[2022-12-12 01:05] LABS: CREATININE 1.7 mg/dL (0.55-1.3)
[2022-12-12 01:07] LABS: BILIRUBIN,TOTAL 0.3 mg/dL (0.2-1); TOT PROT 7.7 g/dl (6.4-8.2)
[2022-12-12] MEDS ORDERED: ONDANSETRON 4 MG/2 ML VIAL IVPUSH ONE (01:58)
[2022-12-12] MEDS ORDERED: ACETAMINOPHEN 325 MG TABLET (FP) PO PRN (05:25)
[2022-12-12] MEDS ORDERED: DEXTROSE 5%-NORMAL SALINE 1,000 ML IV SCH (05:30)
[2022-12-12 06:26] LABS: CALCIUM 8.7 mg/dL (8.5-10.1)
[2022-12-12 06:27] LABS: BLOOD UREA NITROGEN 20.6 mg/dL (7-18)
[2022-12-12 06:30] LABS: CREATININE 1.4 mg/dL (0.55-1.3)
[2022-12-12] MEDS ORDERED: LIDOCAINE HCL 2% JELLY 10 ML CARTRIDGE UR ONE (06:36)
[2022-12-12] MEDS ORDERED: LIDOCAINE HCL 2% JELLY 6 ML TP ONE (06:36)
[2022-12-12] MEDS ORDERED: ONDANSETRON 4 MG/2 ML VIAL IVPUSH PRN (08:00)
[2022-12-12] MEDS ORDERED: LACTATED RINGERS SOLUTION 1,000 ML/1,000 ML INFUS.BAG IV SCH (09:00)
[2022-12-12] MEDS ORDERED: morphine SULFATE 4 MG/ML VIAL IVPUSH PRN (09:03)
[2022-12-12] MEDS ORDERED: GABAPENTIN 100 MG CAPSULE PO SCH (10:00)
[2022-12-12] MEDS ORDERED: ARTIFICIAL TEARS (POLYVINYL ALCOHOL) OPTH DROPS OU SCH (10:00)
[2022-12-12] MEDS: D5-1/2NS+10 MEQ KCL - 10 MEQ/1,000 ML INFUS.BAG IV SCH (12:19)
[2022-12-12] MEDS: CEFTRIAXONE 1 GM in DEXTROSE 5%-WATER 100 ML IVPB SCH (12:23)
[2022-12-12] MEDS: FAMOTIDINE 20 MG/50 ML IVPB 20 MG/50 ML MG IVPB SCH (12:23)
[2022-12-12] MEDS: ARIPiprazole 15 MG TABLET PO SCH ×2 (12:24→22:50)
[2022-12-12] MEDS: ARTIFICIAL TEARS (POLYVINYL ALCOHOL) OPTH DROPS OU SCH ×2 (12:25→22:13)
[2022-12-12] MEDS: NYSTATIN 100,000 UNIT/GM TOPICAL CREAM 15 GM TUBE TP SCH ×2 (12:30→22:13)
[2022-12-12 13:21] LABS: BASO % 0.3 % (0-2.0); EOS % 2.1 % (0-4.5); HEMATOCRIT 38.7 % (32.4-45.2); HEMOGLOBIN 12.6 GM/dL (10.7-15.3); LYMPH % 33.9 % (8-40); MCHC 32.4 g/dl (32.0-36.0); MEAN CELL VOLUME 83.2 fl (80-96); MEAN PLT VOLUME 7.3 fl (7.5-11.1); MONO % 11.8 % (3.8-10.2); NEUT % 51.9 % (42.8-82.8); PLATELET COUNT 266 10^3/uL (134-434); RBC 4.66 M/mm3 (3.60-5.2); RDW 14.2 % (11.6-15.6); WHITE BLOOD COUNT 8.7 K/mm3 (4.0-10.0)
[2022-12-12 13:29] LABS: INR 1.16 (0.83-1.09); PROTHROMBIN TIME (PATIENT) 13.4 SEC (9.7-13.0)
[2022-12-12 13:32] LABS: ACTIVATED PTT 29.5 SECONDS (25.2-36.5)
[2022-12-12 13:47] LABS: ALBUMIN 2.9 g/dl (3.4-5.0); BLOOD UREA NITROGEN 19.4 mg/dL (7-18); CALCIUM 8.9 mg/dL (8.5-10.1)
[2022-12-12 13:50] LABS: CREATININE 1.2 mg/dL (0.55-1.3); PHOSPHOROUS 3.8 mg/dL (2.5-4.9)
[2022-12-12 13:52] LABS: BILIRUBIN,TOTAL 0.4 mg/dL (0.2-1); TOT PROT 6.2 g/dl (6.4-8.2)
[2022-12-12 21:37] LABS: EPI CELLS 13 /uL (0-25.1); HYALINE CASTS 1 /uL (0-3.1); PH,URINE 5.5 (5.0-8.0); URINE APPEARANCE TURBID; URINE BILIRUBIN NEGATIVE (NEGATIVE); URINE COLOR YELLOW; URINE GLUCOSE (UA) NEGATIVE (NEGATIVE); URINE KETONE NEGATIVE (NEGATIVE); URINE LEUK ESTERASE 3+ (NEGATIVE); URINE NITRITE POSITIVE (NEGATIVE); URINE PROTEIN 1+ (NEGATIVE); URINE RBC 1068 /uL (0-23.9); URINE UROBILINOGEN 0.2 mg/dL (0.2-1.0); URINE WBC 8667 /uL (0-25.8)
[2022-12-13 09:38] LABS: BASO % 0.4 % (0-2.0); EOS % 1.9 % (0-4.5); HEMATOCRIT 37.6 % (32.4-45.2); HEMOGLOBIN 12.2 GM/dL (10.7-15.3); LYMPH % 22.8 % (8-40); MCH 27.3 pg (25.7-33.7); MCHC 32.4 g/dl (32.0-36.0); MEAN CELL VOLUME 84.2 fl (80-96); MEAN PLT VOLUME 7.5 fl (7.5-11.1); MONO % 9.5 % (3.8-10.2); NEUT % 65.4 % (42.8-82.8); PLATELET COUNT 245 10^3/uL (134-434); RBC 4.46 M/mm3 (3.60-5.2); RDW 14.9 % (11.6-15.6); WHITE BLOOD COUNT 7.7 K/mm3 (4.0-10.0)
[2022-12-13 10:06] LABS: BLOOD UREA NITROGEN 14.3 mg/dL (7-18)
[2022-12-13 10:07] LABS: CALCIUM 8.9 mg/dL (8.5-10.1); CREATININE 1.2 mg/dL (0.55-1.3)
[2022-12-13 10:09] LABS: ALBUMIN 2.9 g/dl (3.4-5.0); BILIRUBIN,TOTAL 0.3 mg/dL (0.2-1)
[2022-12-13] MEDS: D5-1/2NS+10 MEQ KCL - 10 MEQ/1,000 ML INFUS.BAG IV SCH (10:50)
[2022-12-13] MEDS: FAMOTIDINE 20 MG/50 ML IVPB 20 MG/50 ML MG IVPB SCH (10:54)
[2022-12-13] MEDS: ARIPiprazole 15 MG TABLET PO SCH ×2 (10:56→22:27)
[2022-12-13] MEDS: ARTIFICIAL TEARS (POLYVINYL ALCOHOL) OPTH DROPS OU SCH ×2 (10:58→22:28)
[2022-12-13] MEDS: CEFTRIAXONE 1 GM in DEXTROSE 5%-WATER 100 ML IVPB SCH (10:58)
[2022-12-13] MEDS: NYSTATIN 100,000 UNIT/GM TOPICAL CREAM 15 GM TUBE TP SCH ×2 (10:59→22:28)
[2022-12-14 06:44] VITALS: RESP 18
[2022-12-14] MEDS: ARTIFICIAL TEARS (POLYVINYL ALCOHOL) OPTH DROPS OU SCH (10:00)
[2022-12-14 10:17] LABS: BASO % 0.6 % (0-2.0); EOS % 1.9 % (0-4.5); HEMATOCRIT 38.5 % (32.4-45.2); HEMOGLOBIN 12.6 GM/dL (10.7-15.3); LYMPH % 24.5 % (8-40); MCH 27.3 pg (25.7-33.7); MCHC 32.6 g/dl (32.0-36.0); MEAN CELL VOLUME 83.7 fl (80-96); MEAN PLT VOLUME 7.6 fl (7.5-11.1); MONO % 8.1 % (3.8-10.2); NEUT % 64.9 % (42.8-82.8); PLATELET COUNT 257 10^3/uL (134-434); RDW 14.7 % (11.6-15.6); WHITE BLOOD COUNT 9.6 K/mm3 (4.0-10.0)
[2022-12-14] MEDS: ARIPiprazole 15 MG TABLET PO SCH (10:18)
[2022-12-14] MEDS: CEFTRIAXONE 1 GM in DEXTROSE 5%-WATER 100 ML IVPB SCH (10:20)
[2022-12-14] MEDS: NYSTATIN 100,000 UNIT/GM TOPICAL CREAM 15 GM TUBE TP SCH (10:34)
[2022-12-14 11:03] LABS: CALCIUM 8.8 mg/dL (8.5-10.1)
[2022-12-14 11:07] LABS: CREATININE 1.3 mg/dL (0.55-1.3)
[2022-12-14 15:55] VITALS: BP 113/68; PULSE 78; TEMP 97.4
[2022-12-14] MEDS ORDERED: AMOX TR/POT CLAV 500MG/125MG TABLETS (FP) PO SCH (17:30)
== END 2022-12-14 16:55 | disposition home or self-care (01) | DRG 254 ==
LOC: JER 21:41 → JERBED 12-12 05:01 → J5S 12-12 09:41
PROVIDERS: ADMIT Internal Medicine; ATTEND Internal Medicine
DX: K43.3 Parastomal hernia with obstruction, without gangrene (principal); N13.6 Pyonephrosis; R11.2 Nausea with vomiting, unspecified; F41.9 Anxiety disorder, unspecified; E55.9 Vitamin D deficiency, unspecified; F42.9 Obsessive-compulsive disorder, unspecified; R10.32 Left lower quadrant pain; H04.123 Dry eye syndrome of bilateral lacrimal glands; K56.699 Other intestinal obstruction unspecified as to partial versus complete obstruction; Z93.2 Ileostomy status; Z87.19 Personal history of other diseases of the digestive system
CPT/HCPCS: 36415; 74018-TC-FY; 74019-TC-FY; 74176-TC; 80048; 80053; 81003; 83605; 83690; 83735; 84100; 84484; 85025; 85610; 85730; 86140; 86850; 86900; 86901; 87086; 87186; 87899; 93005; 93010; 94010; 97116-GP; 97161-GP; 99285-25; C9803-CS; U0003; U0005

== ENCOUNTER 2022-12-21 15:47 | Observation (INO) | payer OTHER ==
[2022-12-21] MEDS ORDERED: SODIUM CHLORIDE 1,987 ML IV ONE (16:29)
[2022-12-21] MEDS ORDERED: VANCOMYCIN 1,000 MG in DEXTROSE 5%-WATER - 250 ML IVPB ONE (16:40)
[2022-12-21] MEDS ORDERED: PIPERACILLIN/TAZOBACTAM 4.5 GM VIAL IVPB ONE (16:40)
[2022-12-21] MEDS ORDERED: ACETAMINOPHEN 1000 MG/100 ML BAG IVPB ONE (16:40)
[2022-12-21] MEDS ORDERED: LACTATED RINGERS SOLUTION 1000 ML INFUS.BAG IV ONE (16:44)
[2022-12-21] MEDS ORDERED: ACETAMINOPHEN INJECTION 100 ML IVPB ONE (16:44)
[2022-12-21] MEDS ORDERED: PIPERACILLIN/TAZOB 4.5 GM 4.5 GM/100 ML BAG IVPB ONE (16:44)
[2022-12-21 18:22] LABS: VENOUS BASE EXCESS -0.4 mmol/L (-2-2); VENOUS O2 SATURATION 34.2 % (70-80); VENOUS PCO2 51.4 mmHg (38-52); VENOUS PH 7.333 (7.310-7.410)
[2022-12-21 18:27] LABS: BASO % 0.1 % (0-2.0); EOS % 0.1 % (0-4.5); HEMATOCRIT 45.7 % (32.4-45.2); MCH 27.5 pg (25.7-33.7); MCHC 32.7 g/dl (32.0-36.0); MEAN CELL VOLUME 84.1 fl (80-96); MEAN PLT VOLUME 8.1 fl (7.5-11.1); MONO % 3.4 % (3.8-10.2); NEUT % 93.4 % (42.8-82.8); PLATELET COUNT 337 10^3/uL (134-434); RBC 5.43 M/mm3 (3.60-5.2); RDW 14.3 % (11.6-15.6); WHITE BLOOD COUNT 14.2 K/mm3 (4.0-10.0)
[2022-12-21 18:34] LABS: INR 1.17 (0.83-1.09); PROTHROMBIN TIME (PATIENT) 13.6 SEC (9.7-13.0)
[2022-12-21 18:37] LABS: ACTIVATED PTT 31.2 SECONDS (25.2-36.5)
[2022-12-21 18:48] LABS: BLOOD UREA NITROGEN 23.3 mg/dL (7-18); CALCIUM 9.7 mg/dL (8.5-10.1)
[2022-12-21 18:51] LABS: CREATININE 1.2 mg/dL (0.55-1.3)
[2022-12-21 18:53] LABS: BILIRUBIN,TOTAL 0.4 mg/dL (0.2-1)
[2022-12-21 18:59] LABS: ANISOCYTOSIS 1+; MACROCYTOSIS 0; OVALOCYTE 1+
[2022-12-21 19:00] LABS: ALBUMIN 3.7 g/dl (3.4-5.0); TOT PROT 8.1 g/dl (6.4-8.2)
[2022-12-21] MEDS ORDERED: VANCOMYCIN/WATER FOR INJ (PEG) 1,000 MG/200 ML BAG IVPB ONE (19:25)
[2022-12-21 23:07] LABS: EPI CELLS 13 /uL (0-25.1); HYALINE CASTS 4 /uL (0-3.1); URINE APPEARANCE TURBID; URINE BACTERIA 21 /uL (0-1359); URINE BILIRUBIN NEGATIVE (NEGATIVE); URINE COLOR YELLOW; URINE GLUCOSE (UA) NEGATIVE (NEGATIVE); URINE KETONE NEGATIVE (NEGATIVE); URINE LEUK ESTERASE 2+ (NEGATIVE); URINE NITRITE NEGATIVE (NEGATIVE); URINE PROTEIN 2+ (NEGATIVE); URINE UROBILINOGEN 0.2 mg/dL (0.2-1.0); URINE WBC 7702 /uL (0-25.8)
[2022-12-21 23:12] LABS: YEAST FEW (NEGATIVE)
[2022-12-21] MEDS ORDERED: FAMOTIDINE 20 MG/50 ML IVPB 20 MG/50 ML MG IVPB ONE (23:37)
[2022-12-21] MEDS ORDERED: ONDANSETRON 4 MG/2 ML VIAL IVPUSH PRN (23:47)
[2022-12-22] MEDS ORDERED: FAMOTIDINE 20 MG/50 ML IVPB 20 MG/50 ML MG IVPB ONE (00:28)
[2022-12-22] MEDS: DEXTROSE 5%-NORMAL SALINE 1,000 ML IV SCH ×2 (00:36→23:53)
[2022-12-22] MEDS ORDERED: PIPERACILLIN/TAZOB 3.375 GM 3.375 GM in DEXTROSE 5%-WATER - 50 ML IVPB SCH (02:00)
[2022-12-22] MEDS: PIPERACILLIN/TAZOB 3.375 GM 3.375 GM in DEXTROSE 5%-WATER - 50 ML IVPB SCH ×4 (03:35→21:50)
[2022-12-22] MEDS: NYSTATIN 100,000 UNIT/GM TOPICAL CREAM 15 GM TUBE TP SCH ×3 (04:18→21:53)
[2022-12-22] MEDS: GABAPENTIN 100 MG CAPSULE PO SCH ×3 (05:41→21:53)
[2022-12-22] MEDS: ZINC OXIDE 20% TOPICAL OINTMENT 30 GM TUBE TP SCH ×3 (05:42→21:53)
[2022-12-22] MEDS ORDERED: VANCOMYCIN 1 GM in D5W (PRE-DOCKED) 1,000 MG/250 ML IVPB SCH (10:00)
[2022-12-22] MEDS: CHOLECALCIFEROL (VIT D3) 1,000 UNIT (25 MCG) TABLET PO SCH (10:06)
[2022-12-22] MEDS: ARIPiprazole 15 MG TABLET PO SCH ×2 (10:07→21:51)
[2022-12-22] MEDS ORDERED: FLUVOXAMINE MALEATE PO SCH (10:45)
[2022-12-22] MEDS: ARTIFICIAL TEARS (POLYVINYL ALCOHOL) OPTH DROPS OU SCH ×2 (11:40→21:52)
[2022-12-22] MEDS: metoPROLOL SUCCINATE 25 MG TAB.SR.24H (FP) PO SCH (11:41)
[2022-12-22] MEDS: VANCOMYCIN 1 GM/200 ML PREMIX BAG (RESTRICTED TO ID ONLY) IVPB SCH ×2 (12:00→23:40)
[2022-12-22 16:16] LABS: BASO % 0.3 % (0-2.0); EOS % 0.6 % (0-4.5); HEMATOCRIT 41.7 % (32.4-45.2); HEMOGLOBIN 13.6 GM/dL (10.7-15.3); LYMPH % 18.6 % (8-40); MCH 27.6 pg (25.7-33.7); MCHC 32.7 g/dl (32.0-36.0); MEAN CELL VOLUME 84.3 fl (80-96); MEAN PLT VOLUME 7.4 fl (7.5-11.1); MONO % 6.7 % (3.8-10.2); NEUT % 73.8 % (42.8-82.8); PLATELET COUNT 243 10^3/uL (134-434); RBC 4.94 M/mm3 (3.60-5.2); RDW 14.4 % (11.6-15.6); WHITE BLOOD COUNT 7.8 K/mm3 (4.0-10.0)
[2022-12-22 16:35] LABS: CALCIUM 8.7 mg/dL (8.5-10.1)
[2022-12-22 16:36] LABS: BLOOD UREA NITROGEN 19.6 mg/dL (7-18); MAGNESIUM 1.9 mg/dL (1.8-2.4)
[2022-12-22 16:39] LABS: CREATININE 1.5 mg/dL (0.55-1.3)
[2022-12-22 22:00] VITALS: BMI 27.5
[2022-12-23] MEDS: GABAPENTIN 100 MG CAPSULE PO SCH ×3 (06:51→22:50)
[2022-12-23] MEDS: ZINC OXIDE 20% TOPICAL OINTMENT 30 GM TUBE TP SCH ×3 (06:51→22:45)
[2022-12-23] MEDS: MULTIVITAMINS (DAILY MVI) TABLET (FP) PO SCH (09:04)
[2022-12-23] MEDS: metoPROLOL SUCCINATE 25 MG TAB.SR.24H (FP) PO SCH (09:04)
[2022-12-23] MEDS: CHOLECALCIFEROL (VIT D3) 1,000 UNIT (25 MCG) TABLET PO SCH (09:04)
[2022-12-23] MEDS: AMINO ACIDS/PROTEIN HYDROLYS 30 ML LIQUID.PKT PO SCH (09:05)
[2022-12-23] MEDS: ARIPiprazole 15 MG TABLET PO SCH ×2 (09:05→22:51)
[2022-12-23] MEDS: ARTIFICIAL TEARS (POLYVINYL ALCOHOL) OPTH DROPS OU SCH ×2 (09:06→22:51)
[2022-12-23] MEDS: NYSTATIN 100,000 UNIT/GM TOPICAL CREAM 15 GM TUBE TP SCH ×2 (09:07→22:51)
[2022-12-23 10:38] LABS: BASO % 0.5 % (0-2.0); EOS % 3.2 % (0-4.5); HEMATOCRIT 38.8 % (32.4-45.2); HEMOGLOBIN 12.9 GM/dL (10.7-15.3); LYMPH % 18.2 % (8-40); MCH 27.7 pg (25.7-33.7); MCHC 33.4 g/dl (32.0-36.0); MEAN CELL VOLUME 83.1 fl (80-96); MEAN PLT VOLUME 7.4 fl (7.5-11.1); MONO % 8.3 % (3.8-10.2); NEUT % 69.8 % (42.8-82.8); PLATELET COUNT 243 10^3/uL (134-434); RBC 4.67 M/mm3 (3.60-5.2); RDW 14.5 % (11.6-15.6); WHITE BLOOD COUNT 6.7 K/mm3 (4.0-10.0)
[2022-12-23 11:06] LABS: CALCIUM 8.7 mg/dL (8.5-10.1)
[2022-12-23 11:07] LABS: BLOOD UREA NITROGEN 12.4 mg/dL (7-18)
[2022-12-23 11:10] LABS: CREATININE 1.3 mg/dL (0.55-1.3)
[2022-12-23 11:11] LABS: BILIRUBIN,TOTAL 0.2 mg/dL (0.2-1); TOT PROT 6.2 g/dl (6.4-8.2)
[2022-12-23 11:13] LABS: ALBUMIN 2.7 g/dl (3.4-5.0)
[2022-12-23 14:55] VITALS: RESP 18
[2022-12-23] MEDS: DEXTROSE 5%-NORMAL SALINE 1,000 ML IV SCH (18:32)
[2022-12-24] MEDS: DEXTROSE 5%-NORMAL SALINE 1,000 ML IV SCH ×2 (00:17→12:16)
[2022-12-24] MEDS: GABAPENTIN 100 MG CAPSULE PO SCH ×3 (05:00→22:02)
[2022-12-24] MEDS: ZINC OXIDE 20% TOPICAL OINTMENT 30 GM TUBE TP SCH ×3 (05:00→22:03)
[2022-12-24 08:59] LABS: BASO % 0.6 % (0-2.0); EOS % 4.2 % (0-4.5); HEMATOCRIT 37.7 % (32.4-45.2); HEMOGLOBIN 12.6 GM/dL (10.7-15.3); LYMPH % 27.2 % (8-40); MCH 27.9 pg (25.7-33.7); MCHC 33.4 g/dl (32.0-36.0); MEAN CELL VOLUME 83.3 fl (80-96); MEAN PLT VOLUME 7.3 fl (7.5-11.1); PLATELET COUNT 246 10^3/uL (134-434); RBC 4.53 M/mm3 (3.60-5.2); RDW 14.7 % (11.6-15.6); WHITE BLOOD COUNT 7.1 K/mm3 (4.0-10.0)
[2022-12-24 09:14] LABS: CALCIUM 8.5 mg/dL (8.5-10.1)
[2022-12-24 09:15] LABS: BLOOD UREA NITROGEN 9.9 mg/dL (7-18)
[2022-12-24 09:18] LABS: CREATININE 1.1 mg/dL (0.55-1.3)
[2022-12-24] MEDS: MULTIVITAMINS (DAILY MVI) TABLET (FP) PO SCH (10:14)
[2022-12-24] MEDS: metoPROLOL SUCCINATE 25 MG TAB.SR.24H (FP) PO SCH (10:14)
[2022-12-24] MEDS: AMINO ACIDS/PROTEIN HYDROLYS 30 ML LIQUID.PKT PO SCH (10:15)
[2022-12-24] MEDS: CHOLECALCIFEROL (VIT D3) 1,000 UNIT (25 MCG) TABLET PO SCH (10:15)
[2022-12-24] MEDS: ARIPiprazole 15 MG TABLET PO SCH ×2 (10:16→22:02)
[2022-12-24] MEDS: NYSTATIN 100,000 UNIT/GM TOPICAL CREAM 15 GM TUBE TP SCH ×2 (10:16→22:03)
[2022-12-24] MEDS: ARTIFICIAL TEARS (POLYVINYL ALCOHOL) OPTH DROPS OU SCH ×2 (10:16→22:04)
[2022-12-24] MEDS ORDERED: INSULIN (LEVEMIR) 100 UNITS/ML UNITS SQ ONE (19:55)
[2022-12-25] MEDS: DEXTROSE 5%-NORMAL SALINE 1,000 ML IV SCH ×2 (04:27→04:28)
[2022-12-25] MEDS: ZINC OXIDE 20% TOPICAL OINTMENT 30 GM TUBE TP SCH ×2 (06:26→14:58)
[2022-12-25] MEDS: GABAPENTIN 100 MG CAPSULE PO SCH ×2 (06:32→14:37)
[2022-12-25] MEDS ORDERED: INSULIN SLIDING SCALE (NOVOLOG) 1 VIAL SQ ONE (06:54)
[2022-12-25] MEDS: CHOLECALCIFEROL (VIT D3) 1,000 UNIT (25 MCG) TABLET PO SCH (09:56)
[2022-12-25] MEDS: metoPROLOL SUCCINATE 25 MG TAB.SR.24H (FP) PO SCH (09:56)
[2022-12-25] MEDS: MULTIVITAMINS (DAILY MVI) TABLET (FP) PO SCH (09:56)
[2022-12-25] MEDS: AMINO ACIDS/PROTEIN HYDROLYS 30 ML LIQUID.PKT PO SCH (09:56)
[2022-12-25] MEDS ORDERED: FLUCONAZOLE 150 MG TABLET PO ONE (10:00)
[2022-12-25] MEDS: ARIPiprazole 15 MG TABLET PO SCH (10:02)
[2022-12-25] MEDS: NYSTATIN 100,000 UNIT/GM TOPICAL CREAM 15 GM TUBE TP SCH (10:03)
[2022-12-25] MEDS: ARTIFICIAL TEARS (POLYVINYL ALCOHOL) OPTH DROPS OU SCH (10:04)
[2022-12-25 15:36] VITALS: BP 109/74; PULSE 69; TEMP 99.4
== END 2022-12-25 15:43 ==
LOC: JER 15:47 → JERBED 23:12 → J5S 12-22 01:25
PROVIDERS: ADMIT Internal Medicine; ATTEND Internal Medicine
PROC: 3E033GC Introduction of Other Therapeutic Substance into Peripheral Vein, Percutaneous Approach (ICD-10-PCS; principal; 2022-12-21)
PROC: 3E033NZ Introduction of Analgesics, Hypnotics, Sedatives into Peripheral Vein, Percutaneous Approach (ICD-10-PCS; 2022-12-21)
PROC: 3E0337Z Introduction of Electrolytic and Water Balance Substance into Peripheral Vein, Percutaneous Approach (ICD-10-PCS; 2022-12-21)
DX: N39.0 Urinary tract infection, site not specified (principal); E86.0 Dehydration; L89.302 Pressure ulcer of unspecified buttock, stage 2; K51.90 Ulcerative colitis, unspecified, without complications; R10.32 Left lower quadrant pain; R32 Unspecified urinary incontinence; N18.30 Chronic kidney disease, stage 3 unspecified; Z93.2 Ileostomy status; N20.0 Calculus of kidney; R10.9 Unspecified abdominal pain; Z87.442 Personal history of urinary calculi; R19.5 Other fecal abnormalities; F41.9 Anxiety disorder, unspecified; Z88.2 Allergy status to sulfonamides; Z91.040 Latex allergy status; Z86.59 Personal history of other mental and behavioral disorders
CPT/HCPCS: 0241U-QW; 36415; 71045-TC-FY; 74177-TC; 80048; 80053; 81003; 82550; 82553; 82803; 83605; 83735; 84484; 85025; 85610; 85730; 86850; 86900; 86901; 87040; 87077; 87086; 87324; 87449; 93005; 93010; 96361; 96365; 96366; 96367; 96368; 96375; 99285-25; G0378; Q9967

== ENCOUNTER 2023-03-29 19:01 | Inpatient (IN) | payer OTHER ==
[2023-03-29 19:15] VITALS: BMI 28.9
[2023-03-29] MEDS ORDERED: SODIUM CHLORIDE 1,000 ML IV STA (19:48)
[2023-03-29] MEDS ORDERED: ACETAMINOPHEN 1000 MG/100 ML BAG IVPB ONE (19:48)
[2023-03-29] MEDS ORDERED: ACETAMINOPHEN INJECTION 100 ML IVPB ONE (20:15)
[2023-03-29 20:35] LABS: BASO % 0.3 % (0-2.0); HEMATOCRIT 29.8 % (32.4-45.2); LYMPH % 6.2 % (8-40); MCH 26.7 pg (25.7-33.7); MCHC 33.5 g/dl (32.0-36.0); MEAN CELL VOLUME 79.7 fl (80-96); MEAN PLT VOLUME 9.1 fl (7.5-11.1); MONO % 14.3 % (3.8-10.2); NEUT % 79.2 % (42.8-82.8); PLATELET COUNT 176 10^3/uL (134-434); RBC 3.73 M/mm3 (3.60-5.2); RDW 15.1 % (11.6-15.6); WHITE BLOOD COUNT 20.6 K/mm3 (4.0-10.0)
[2023-03-29 20:54] LABS: POTASSIUM 4.3 mmol/L (3.5-5.1)
[2023-03-29 20:57] LABS: CALCIUM 8.1 mg/dL (8.5-10.1)
[2023-03-29 20:58] LABS: ALBUMIN 2.5 g/dl (3.4-5.0); MAGNESIUM 1.8 mg/dL (1.8-2.4)
[2023-03-29 21:01] LABS: CREATININE 2.7 mg/dL (0.55-1.3); PHOSPHOROUS 2.6 mg/dL (2.5-4.9)
[2023-03-29 21:03] LABS: BILIRUBIN,TOTAL 0.4 mg/dL (0.2-1); TOT PROT 6.2 g/dl (6.4-8.2)
[2023-03-29 21:06] LABS: N-TERMINAL BNP 983.9 pg/ml (5-125)
[2023-03-29 21:23] LABS: ANISOCYTOSIS 1+; MACROCYTOSIS 0; PLATELET ESTIMATE NORMAL
[2023-03-29 23:20] LABS: VENOUS O2 SATURATION 97.6 % (70-80); VENOUS PH 7.287 (7.310-7.410)
[2023-03-30] MEDS ORDERED: CEFTRIAXONE 1,000 MG in DEXTROSE 5%-WATER - 50 ML IVPB ONE (00:26)
[2023-03-30] MEDS ORDERED: CEFTRIAXONE 1 GM/50 ML BAG ONE (00:38)
[2023-03-30 00:52] LABS: EPI CELLS 27 /uL (0-25.1); HYALINE CASTS 13 /uL (0-3.1); URINE APPEARANCE TURBID; URINE BACTERIA 4218 /uL (0-1359); URINE BILIRUBIN NEGATIVE (NEGATIVE); URINE COLOR YELLOW; URINE GLUCOSE (UA) NEGATIVE (NEGATIVE); URINE KETONE NEGATIVE (NEGATIVE); URINE LEUK ESTERASE 3+ (NEGATIVE); URINE NITRITE NEGATIVE (NEGATIVE); URINE PROTEIN 2+ (NEGATIVE); URINE UROBILINOGEN 0.2 mg/dL (0.2-1.0); URINE WBC 29052 /uL (0-25.8)
[2023-03-30] MEDS ORDERED: SODIUM CHLORIDE 1,000 ML IV STA (01:58)
[2023-03-30] MEDS ORDERED: DEXTROSE 5%-NORMAL SALINE 1,000 ML IV SCH (04:00)
[2023-03-30] MEDS ORDERED: HEPARIN NA (PORCINE) 5,000 UNITS/ML 1ML VIAL SQ SCH (06:00)
[2023-03-30 06:23] LABS: BASO % 0.2 % (0-2.0); HEMATOCRIT 33.2 % (32.4-45.2); HEMOGLOBIN 10.9 GM/dL (10.7-15.3); LYMPH % 4.2 % (8-40); MCH 26.7 pg (25.7-33.7); MCHC 32.9 g/dl (32.0-36.0); MEAN CELL VOLUME 81.2 fl (80-96); MEAN PLT VOLUME 8.4 fl (7.5-11.1); MONO % 10.9 % (3.8-10.2); NEUT % 84.7 % (42.8-82.8); PLATELET COUNT 174 10^3/uL (134-434); RBC 4.08 M/mm3 (3.60-5.2); RDW 15.5 % (11.6-15.6); WHITE BLOOD COUNT 19.2 K/mm3 (4.0-10.0)
[2023-03-30 06:43] LABS: POTASSIUM 4.3 mmol/L (3.5-5.1)
[2023-03-30 06:45] LABS: CALCIUM 8.3 mg/dL (8.5-10.1)
[2023-03-30 06:46] LABS: ALBUMIN 2.2 g/dl (3.4-5.0); BLOOD UREA NITROGEN 45.1 mg/dL (7-18); MAGNESIUM 1.8 mg/dL (1.8-2.4)
[2023-03-30 06:49] LABS: CREATININE 2.4 mg/dL (0.55-1.3); INR 1.29 (0.83-1.09); PHOSPHOROUS 3.7 mg/dL (2.5-4.9); PROTHROMBIN TIME (PATIENT) 14.9 SEC (9.7-13.0)
[2023-03-30 06:51] LABS: ACTIVATED PTT 27.8 SECONDS (25.2-36.5); BILIRUBIN,TOTAL 0.5 mg/dL (0.2-1)
[2023-03-30] MEDS: CHOLECALCIFEROL (VIT D3) 1,000 UNIT (25 MCG) TABLET PO SCH (09:47)
[2023-03-30] MEDS: LOPERAMIDE HCL 2 MG CAPSULE PO SCH ×2 (09:47→21:29)
[2023-03-30] MEDS: ASCORBIC ACID 500 MG TABLET (FP) PO SCH (09:49)
[2023-03-30] MEDS: HEPARIN NA (PORCINE) 5,000 UNITS/ML 1ML VIAL SQ SCH ×2 (09:50→21:29)
[2023-03-30] MEDS: GABAPENTIN 300 MG CAPSULE PO SCH ×2 (09:52→21:29)
[2023-03-30] MEDS: ARIPiprazole 15 MG TABLET PO SCH (10:33)
[2023-03-30] MEDS: ARTIFICIAL TEARS (POLYVINYL ALCOHOL) OPTH DROPS OU SCH ×2 (10:36→21:29)
[2023-03-30] MEDS: SODIUM CHLORIDE 1,000 ML IV SCH ×2 (11:45→21:47)
[2023-03-30] MEDS ORDERED: ACETAMINOPHEN 325 MG TABLET (FP) PO PRN (12:13)
[2023-03-30] MEDS: CEFTRIAXONE 1 GM in DEXTROSE 5%-WATER - 50 ML IVPB SCH (21:59)
[2023-03-31] MEDS ORDERED: VANCOMYCIN 1 GM/200 ML PREMIX BAG (RESTRICTED TO ID ONLY) IVPB ONE (00:52)
[2023-03-31 10:03] LABS: BASO % 0.4 % (0-2.0); EOS % 0.9 % (0-4.5); HEMATOCRIT 29.1 % (32.4-45.2); HEMOGLOBIN 9.3 GM/dL (10.7-15.3); LYMPH % 6.6 % (8-40); MCH 26.4 pg (25.7-33.7); MEAN CELL VOLUME 82.5 fl (80-96); MEAN PLT VOLUME 8.2 fl (7.5-11.1); MONO % 11.5 % (3.8-10.2); NEUT % 80.6 % (42.8-82.8); PLATELET COUNT 181 10^3/uL (134-434); RBC 3.52 M/mm3 (3.60-5.2); RDW 16.1 % (11.6-15.6); WHITE BLOOD COUNT 14.3 K/mm3 (4.0-10.0)
[2023-03-31] MEDS: ASCORBIC ACID 500 MG TABLET (FP) PO SCH (10:07)
[2023-03-31] MEDS: LOPERAMIDE HCL 2 MG CAPSULE PO SCH ×2 (10:07→21:10)
[2023-03-31] MEDS: metoPROLOL SUCCINATE 25 MG TAB.SR.24H (FP) PO SCH (10:08)
[2023-03-31] MEDS: HEPARIN NA (PORCINE) 5,000 UNITS/ML 1ML VIAL SQ SCH ×2 (10:08→21:10)
[2023-03-31] MEDS: GABAPENTIN 300 MG CAPSULE PO SCH ×2 (10:08→21:09)
[2023-03-31] MEDS: CHOLECALCIFEROL (VIT D3) 1,000 UNIT (25 MCG) TABLET PO SCH (10:21)
[2023-03-31] MEDS: ARIPiprazole 15 MG TABLET PO SCH (10:22)
[2023-03-31] MEDS: ARTIFICIAL TEARS (POLYVINYL ALCOHOL) OPTH DROPS OU SCH ×2 (10:23→21:15)
[2023-03-31] MEDS: SODIUM CHLORIDE 1,000 ML IV SCH (10:32)
[2023-03-31 11:06] LABS: BLOOD UREA NITROGEN 39.3 mg/dL (7-18); CALCIUM 8.3 mg/dL (8.5-10.1); CREATININE 1.8 mg/dL (0.55-1.3); POTASSIUM 4.3 mmol/L (3.5-5.1)
[2023-03-31] MEDS: CEFTRIAXONE 1 GM in DEXTROSE 5%-WATER - 50 ML IVPB SCH (21:11)
[2023-04-01] MEDS: ASCORBIC ACID 500 MG TABLET (FP) PO SCH (09:33)
[2023-04-01] MEDS: GABAPENTIN 300 MG CAPSULE PO SCH ×2 (09:33→21:17)
[2023-04-01] MEDS: LOPERAMIDE HCL 2 MG CAPSULE PO SCH ×2 (09:33→21:17)
[2023-04-01] MEDS: metoPROLOL SUCCINATE 25 MG TAB.SR.24H (FP) PO SCH (09:33)
[2023-04-01] MEDS: CHOLECALCIFEROL (VIT D3) 1,000 UNIT (25 MCG) TABLET PO SCH (09:33)
[2023-04-01] MEDS: HEPARIN NA (PORCINE) 5,000 UNITS/ML 1ML VIAL SQ SCH ×2 (09:33→21:17)
[2023-04-01] MEDS: ARIPiprazole 15 MG TABLET PO SCH (09:34)
[2023-04-01] MEDS: ARTIFICIAL TEARS (POLYVINYL ALCOHOL) OPTH DROPS OU SCH ×2 (09:35→21:35)
[2023-04-01] MEDS: SODIUM CHLORIDE 1,000 ML IV SCH (09:36)
[2023-04-01 10:20] LABS: BASO % 0.3 % (0-2.0); EOS % 3.2 % (0-4.5); HEMATOCRIT 29.2 % (32.4-45.2); HEMOGLOBIN 9.7 GM/dL (10.7-15.3); LYMPH % 11.9 % (8-40); MCH 27.2 pg (25.7-33.7); MCHC 33.4 g/dl (32.0-36.0); MEAN CELL VOLUME 81.4 fl (80-96); MEAN PLT VOLUME 8.4 fl (7.5-11.1); MONO % 13.1 % (3.8-10.2); NEUT % 71.5 % (42.8-82.8); PLATELET COUNT 226 10^3/uL (134-434); RBC 3.59 M/mm3 (3.60-5.2); RDW 15.9 % (11.6-15.6); WHITE BLOOD COUNT 9.4 K/mm3 (4.0-10.0)
[2023-04-01 10:31] LABS: POTASSIUM 4.3 mmol/L (3.5-5.1)
[2023-04-01 10:38] LABS: BLOOD UREA NITROGEN 27.4 mg/dL (7-18); CALCIUM 7.9 mg/dL (8.5-10.1)
[2023-04-01 10:41] LABS: CREATININE 1.5 mg/dL (0.55-1.3)
[2023-04-01] MEDS: SODIUM CHLORIDE 0.45% 1,000 ML IV SCH (13:40)
[2023-04-01] MEDS: CEFTRIAXONE 1 GM in DEXTROSE 5%-WATER - 50 ML IVPB SCH (21:18)
[2023-04-02] MEDS: CHOLECALCIFEROL (VIT D3) 1,000 UNIT (25 MCG) TABLET PO SCH (10:09)
[2023-04-02] MEDS: GABAPENTIN 300 MG CAPSULE PO SCH ×2 (10:12→21:36)
[2023-04-02] MEDS: LOPERAMIDE HCL 2 MG CAPSULE PO SCH ×2 (10:12→21:36)
[2023-04-02] MEDS: metoPROLOL SUCCINATE 25 MG TAB.SR.24H (FP) PO SCH (10:12)
[2023-04-02] MEDS: HEPARIN NA (PORCINE) 5,000 UNITS/ML 1ML VIAL SQ SCH ×2 (10:13→21:36)
[2023-04-02] MEDS: ARIPiprazole 15 MG TABLET PO SCH (10:13)
[2023-04-02] MEDS: ASCORBIC ACID 500 MG TABLET (FP) PO SCH (10:15)
[2023-04-02] MEDS: ARTIFICIAL TEARS (POLYVINYL ALCOHOL) OPTH DROPS OU SCH ×2 (10:21→21:36)
[2023-04-02] MEDS: SODIUM CHLORIDE 0.45% 1,000 ML IV SCH (15:31)
[2023-04-02 18:20] VITALS: RESP 18
[2023-04-03] MEDS: CHOLECALCIFEROL (VIT D3) 1,000 UNIT (25 MCG) TABLET PO SCH (10:34)
[2023-04-03] MEDS: LOPERAMIDE HCL 2 MG CAPSULE PO SCH ×2 (10:34→21:09)
[2023-04-03] MEDS: metoPROLOL SUCCINATE 25 MG TAB.SR.24H (FP) PO SCH (10:34)
[2023-04-03] MEDS: ASCORBIC ACID 500 MG TABLET (FP) PO SCH (10:34)
[2023-04-03] MEDS: HEPARIN NA (PORCINE) 5,000 UNITS/ML 1ML VIAL SQ SCH ×2 (10:34→21:09)
[2023-04-03] MEDS: GABAPENTIN 300 MG CAPSULE PO SCH ×2 (10:34→21:08)
[2023-04-03] MEDS: ARIPiprazole 15 MG TABLET PO SCH (10:35)
[2023-04-03] MEDS: ARTIFICIAL TEARS (POLYVINYL ALCOHOL) OPTH DROPS OU SCH ×2 (10:37→21:09)
[2023-04-03 13:03] LABS: BASO % 0.6 % (0-2.0); EOS % 3.2 % (0-4.5); HEMOGLOBIN 10.4 GM/dL (10.7-15.3); LYMPH % 19.3 % (8-40); MCH 26.3 pg (25.7-33.7); MCHC 32.6 g/dl (32.0-36.0); MEAN CELL VOLUME 80.7 fl (80-96); MEAN PLT VOLUME 7.6 fl (7.5-11.1); MONO % 11.5 % (3.8-10.2); NEUT % 65.4 % (42.8-82.8); PLATELET COUNT 357 10^3/uL (134-434); RBC 3.96 M/mm3 (3.60-5.2); WHITE BLOOD COUNT 6.8 K/mm3 (4.0-10.0)
[2023-04-03 13:36] LABS: POTASSIUM 4.4 mmol/L (3.5-5.1)
[2023-04-03 13:37] LABS: CALCIUM 8.5 mg/dL (8.5-10.1)
[2023-04-03 13:41] LABS: CREATININE 1.4 mg/dL (0.55-1.3)
[2023-04-03] MEDS: SODIUM CHLORIDE 0.45% 1,000 ML IV SCH (21:32)
[2023-04-04 06:18] VITALS: BP 142/74; PULSE 64; TEMP 98
[2023-04-04] MEDS: ASCORBIC ACID 500 MG TABLET (FP) PO SCH (09:43)
[2023-04-04] MEDS: CHOLECALCIFEROL (VIT D3) 1,000 UNIT (25 MCG) TABLET PO SCH (09:43)
[2023-04-04] MEDS: LOPERAMIDE HCL 2 MG CAPSULE PO SCH (09:43)
[2023-04-04] MEDS: metoPROLOL SUCCINATE 25 MG TAB.SR.24H (FP) PO SCH (09:43)
[2023-04-04] MEDS: GABAPENTIN 300 MG CAPSULE PO SCH (09:43)
[2023-04-04] MEDS: ARIPiprazole 15 MG TABLET PO SCH (09:44)
[2023-04-04] MEDS: HEPARIN NA (PORCINE) 5,000 UNITS/ML 1ML VIAL SQ SCH (09:44)
[2023-04-04] MEDS: ARTIFICIAL TEARS (POLYVINYL ALCOHOL) OPTH DROPS OU SCH (09:45)
[2023-04-04 10:00] LABS: ALBUMIN 2.1 g/dl (3.4-5.0); BLOOD UREA NITROGEN 24.8 mg/dL (7-18)
[2023-04-04 10:02] LABS: CREATININE 1.3 mg/dL (0.55-1.3)
[2023-04-04 10:03] LABS: BILIRUBIN,TOTAL 0.2 mg/dL (0.2-1); TOT PROT 6.3 g/dl (6.4-8.2)
== END 2023-04-04 11:15 | DRG 872 ==
LOC: JER 19:01 → JERBED 21:10 → J5S 03-30 08:52
PROVIDERS: ADMIT Internal Medicine; ATTEND Internal Medicine
DX: A41.9 Sepsis, unspecified organism (principal); K50.90 Crohn's disease, unspecified, without complications; N17.9 Acute kidney failure, unspecified; L03.317 Cellulitis of buttock; E87.1 Hypo-osmolality and hyponatremia; E87.20 Acidosis, unspecified; N39.0 Urinary tract infection, site not specified; R65.20 Severe sepsis without septic shock; F42.9 Obsessive-compulsive disorder, unspecified; E55.9 Vitamin D deficiency, unspecified; F41.9 Anxiety disorder, unspecified; H04.123 Dry eye syndrome of bilateral lacrimal glands; M54.2 Cervicalgia; N39.498 Other specified urinary incontinence; R10.32 Left lower quadrant pain; E86.0 Dehydration; B96.1 Klebsiella pneumoniae [K. pneumoniae] as the cause of diseases classified elsewhere; R80.9 Proteinuria, unspecified; N18.9 Chronic kidney disease, unspecified; Z93.2 Ileostomy status
CPT/HCPCS: 0241U-QW; 36415; 70450-TC; 71045-TC-FY; 74176-TC; 76775-TC; 80048; 80053; 81003; 82140; 82803; 83605; 83735; 83880; 84100; 84484; 85025; 85610; 85730; 86038; 86160; 86704; 87040; 87086; 87186; 87340; 93005; 93010; 93970-TC; 97116-GP; 97162-GP; 99285-25; C9803-CS; J1644; U0003; U0005

== ENCOUNTER 2023-07-20 13:05 | Inpatient (IN) | payer MEDICARE, OTHER ==
[2023-07-20] MEDS ORDERED: SODIUM CHLORIDE 1,000 ML IV SCH (13:15)
[2023-07-20] MEDS ORDERED: LACTATED RINGERS SOLUTION 1000 ML INFUS.BAG IV ONE (13:40)
[2023-07-20] MEDS ORDERED: ACETAMINOPHEN 1000 MG/100 ML BAG IVPB ONE (13:40)
[2023-07-20 14:27] LABS: HEMATOCRIT 37.3 % (32.4-45.2); HEMOGLOBIN 12.4 GM/dL (10.7-15.3); MCH 26.1 pg (25.7-33.7); MCHC 33.3 g/dl (32.0-36.0); MEAN CELL VOLUME 78.4 fl (80-96); MEAN PLT VOLUME 8.3 fl (7.5-11.1); PLATELET COUNT 335 10^3/uL (134-434); RBC 4.75 M/mm3 (3.60-5.2); WHITE BLOOD COUNT 23.3 K/mm3 (4.0-10.0)
[2023-07-20] MEDS ORDERED: ACETAMINOPHEN INJECTION 100 ML IVPB ONE (14:34)
[2023-07-20 14:44] LABS: URINE APPEARANCE TURBID; URINE BILIRUBIN NEGATIVE (NEGATIVE); URINE COLOR YELLOW; URINE GLUCOSE (UA) NEGATIVE (NEGATIVE); URINE KETONE TRACE (NEGATIVE)
[2023-07-20 14:45] LABS: URINE LEUK ESTERASE 4+ (NEGATIVE); URINE NITRITE NEGATIVE (NEGATIVE); URINE PROTEIN 3+ (NEGATIVE); URINE RBC 170.6 /uL (0-23.9); URINE UROBILINOGEN 0.2 mg/dL (0.2-1.0)
[2023-07-20 14:46] LABS: EPI CELLS 200 /uL (0-25.1); HYALINE CASTS 100 /uL (0-3.1); URINE WBC 11690.1 /uL (0-25.8)
[2023-07-20 14:50] LABS: POTASSIUM 3.8 mmol/L (3.5-5.1)
[2023-07-20 14:52] LABS: ALBUMIN 2.8 g/dl (3.4-5.0); CALCIUM 8.5 mg/dL (8.5-10.1)
[2023-07-20 14:53] LABS: ANISOCYTOSIS 0; BLOOD UREA NITROGEN 92.5 mg/dL (7-18); HELMET CELLS 0; HOWELL-JOLLY BODIES 0; MACROCYTOSIS 0; OVALOCYTE 0; ROULEAU 0; SICKELED CELLS 0; TARGET CELLS 0; TEAR DROP CELLS 0; TOXIC GRANULATION 0
[2023-07-20 14:55] LABS: CREATININE 6.7 mg/dL (0.55-1.3); INR 1.42 (0.83-1.09); PROTHROMBIN TIME (PATIENT) 16.4 SEC (9.7-13.0)
[2023-07-20 14:57] LABS: TOT PROT 7.9 g/dl (6.4-8.2)
[2023-07-20 14:58] LABS: ACTIVATED PTT 28.5 SECONDS (25.2-36.5); BILIRUBIN,TOTAL 0.4 mg/dL (0.2-1)
[2023-07-20] MEDS ORDERED: CEFTRIAXONE 1 GM in DEXTROSE 5%-WATER - 100 ML IVPB ONE (15:02)
[2023-07-20] MEDS ORDERED: SODIUM CHLORIDE 0.9% 1000 ML INFUS.BAG IV ONE (15:28)
[2023-07-20] MEDS ORDERED: CEFTRIAXONE 1 GM/50 ML BAG ONE (15:42)
[2023-07-20 15:47] LABS: VENOUS BASE EXCESS -11.5 mmol/L (-2-2); VENOUS O2 SATURATION 80.4 % (70-80); VENOUS PCO2 32.2 mmHg (38-52); VENOUS PH 7.266 (7.310-7.410)
[2023-07-20] MEDS ORDERED: NOREPINEPHRINE BITARTRATE/D5W 8 MG/250 ML BAG IVPB ONE (16:19)
[2023-07-20] MEDS: NOREPINEPHRINE BITARTRATE/D5W 8 MG/250 ML BAG IVPB SCH (16:30)
[2023-07-20] MEDS ORDERED: NOREPINEPHRINE BITARTRATE 4,000 MCG in DEXTROSE 5%-WATER - 496 ML IV SCH (16:30)
[2023-07-20] MEDS: LACTATED RINGERS SOLUTION 1,000 ML/1,000 ML INFUS.BAG IV SCH (20:00)
[2023-07-20] MEDS: HEPARIN NA (PORCINE) 5,000 UNITS/ML 1ML VIAL SQ SCH (21:48)
[2023-07-20] MEDS: CHLORHEXIDINE GLUCONATE 4% CLEANSER FOR DECOLONIZATION TP SCH (21:49)
[2023-07-21] MEDS: MUPIROCIN 2% TOPICAL OINTMENT FOR DECOLONIZATION NS SCH ×3 (00:13→21:53)
[2023-07-21] MEDS: VASOPRESSIN 40 UNITS/100 ML BAG IV SCH (00:14)
[2023-07-21] MEDS: HYDROCORTISONE SOD SUCCINATE 100 MG/2 ML VIAL IVPB SCH ×2 (00:17→09:24)
[2023-07-21] MEDS: HEPARIN NA (PORCINE) 5,000 UNITS/ML 1ML VIAL SQ SCH ×3 (05:07→21:50)
[2023-07-21 07:43] LABS: HEMATOCRIT 34.4 % (32.4-45.2); HEMOGLOBIN 11.1 GM/dL (10.7-15.3); MCH 25.8 pg (25.7-33.7); MCHC 32.2 g/dl (32.0-36.0); MEAN PLT VOLUME 8.6 fl (7.5-11.1); PLATELET COUNT 326 10^3/uL (134-434); RBC 4.29 M/mm3 (3.60-5.2); RDW 14.9 % (11.6-15.6)
[2023-07-21 07:51] LABS: INR 1.48 (0.83-1.09); PROTHROMBIN TIME (PATIENT) 17.1 SEC (9.7-13.0)
[2023-07-21 07:53] LABS: ACTIVATED PTT 26.4 SECONDS (25.2-36.5)
[2023-07-21 07:55] LABS: WHITE BLOOD COUNT 30.1 K/mm3 (4.0-10.0)
[2023-07-21 08:09] LABS: POTASSIUM 3.1 mmol/L (3.5-5.1)
[2023-07-21 08:15] LABS: CALCIUM 8.2 mg/dL (8.5-10.1)
[2023-07-21 08:16] LABS: BLOOD UREA NITROGEN 83.1 mg/dL (7-18); MAGNESIUM 1.9 mg/dL (1.8-2.4)
[2023-07-21 08:19] LABS: CREATININE 5.7 mg/dL (0.55-1.3); PHOSPHOROUS 6.7 mg/dL (2.5-4.9)
[2023-07-21 08:21] LABS: BILIRUBIN,TOTAL 0.4 mg/dL (0.2-1)
[2023-07-21 08:59] LABS: ARTERIAL BLD GAS O2 SATURATION 97.6 % (95-98); ARTERIAL BLOOD GAS BASE EXCESS -13.1 mmol/L (-2-2); ARTERIAL BLOOD GAS PO2 111.5 mmHg (80-100); ARTERIAL BLOOD GAS pH 7.273 (7.350-7.450)
[2023-07-21 09:00] LABS: ALLENS TEST POSITIVE
[2023-07-21 09:07] LABS: ANISOCYTOSIS 0; HELMET CELLS 0; HOWELL-JOLLY BODIES 0; MACROCYTOSIS 0; OVALOCYTE 0; ROULEAU 0; SICKELED CELLS 0; TARGET CELLS 0; TEAR DROP CELLS 0; TOXIC GRANULATION 0
[2023-07-21] MEDS: CHOLECALCIFEROL (VIT D3) 1,000 UNIT (25 MCG) TABLET PO SCH (09:23)
[2023-07-21] MEDS: ASCORBIC ACID 500 MG TABLET (FP) PO SCH (09:23)
[2023-07-21] MEDS: CEFTRIAXONE 1 GM in DEXTROSE 5%-WATER - 50 ML IVPB SCH (09:24)
[2023-07-21] MEDS: ARIPiprazole 15 MG TABLET PO SCH (09:59)
[2023-07-21] MEDS: NOREPINEPHRINE BITARTRATE/D5W 8 MG/250 ML BAG IVPB SCH (17:20)
[2023-07-21] MEDS: LACTATED RINGERS SOLUTION 1,000 ML/1,000 ML INFUS.BAG IV SCH (17:20)
[2023-07-21] MEDS: CHLORHEXIDINE GLUCONATE 4% CLEANSER FOR DECOLONIZATION TP SCH (21:50)
[2023-07-22] MEDS: VASOPRESSIN 40 UNITS/100 ML BAG IV SCH (00:19)
[2023-07-22] MEDS: LACTATED RINGERS SOLUTION 1,000 ML/1,000 ML INFUS.BAG IV SCH (02:55)
[2023-07-22] MEDS: HEPARIN NA (PORCINE) 5,000 UNITS/ML 1ML VIAL SQ SCH ×3 (05:02→22:09)
[2023-07-22 07:15] LABS: BASO % 0.3 % (0-2.0); EOS % 0.3 % (0-4.5); HEMATOCRIT 29.2 % (32.4-45.2); HEMOGLOBIN 9.4 GM/dL (10.7-15.3); LYMPH % 5.7 % (8-40); MCH 25.4 pg (25.7-33.7); MCHC 32.2 g/dl (32.0-36.0); MEAN CELL VOLUME 78.7 fl (80-96); MEAN PLT VOLUME 8.4 fl (7.5-11.1); MONO % 7.6 % (3.8-10.2); NEUT % 86.1 % (42.8-82.8); PLATELET COUNT 312 10^3/uL (134-434); RBC 3.71 M/mm3 (3.60-5.2); RDW 15.1 % (11.6-15.6); WHITE BLOOD COUNT 19.6 K/mm3 (4.0-10.0)
[2023-07-22 07:23] LABS: CHLORIDE 105 mmol/L (98-107); SODIUM 136 mmol/L (136-145)
[2023-07-22 07:25] LABS: ALBUMIN 1.7 g/dl (3.4-5.0); BLOOD UREA NITROGEN 82.8 mg/dL (7-18); CALCIUM 7.7 mg/dL (8.5-10.1); CO2 16 mmol/L (21-32); GLUCOSE,RANDOM 93 mg/dL (74-106); MAGNESIUM 1.8 mg/dL (1.8-2.4)
[2023-07-22 07:28] LABS: CREATININE 4.4 mg/dL (0.55-1.3); PHOSPHOROUS 5.2 mg/dL (2.5-4.9); SGOT/AST 23 U/L (15-37); SGPT/ALT 19 U/L (13-61)
[2023-07-22 07:30] LABS: BILIRUBIN,TOTAL 0.2 mg/dL (0.2-1); TOT PROT 5.3 g/dl (6.4-8.2)
[2023-07-22 07:32] LABS: ALK PHOS 110 U/L (45-117); ANION GAP 16 MMOL/L (8-16); POTASSIUM 2.7 mmol/L (3.5-5.1)
[2023-07-22] MEDS ORDERED: POTASSIUM CHLORIDE ORAL LIQUID 20 MEQ/15 ML PO ONE (08:55)
[2023-07-22] MEDS: ARIPiprazole 15 MG TABLET PO SCH (09:19)
[2023-07-22] MEDS: ASCORBIC ACID 500 MG TABLET (FP) PO SCH (09:19)
[2023-07-22] MEDS: CHOLECALCIFEROL (VIT D3) 1,000 UNIT (25 MCG) TABLET PO SCH (09:19)
[2023-07-22] MEDS: CEFTRIAXONE 1 GM in DEXTROSE 5%-WATER - 50 ML IVPB SCH (09:19)
[2023-07-22] MEDS: MUPIROCIN 2% TOPICAL OINTMENT FOR DECOLONIZATION NS SCH ×2 (09:19→22:09)
[2023-07-22] MEDS: KCL 10 MEQ IVPB 10 MEQ/100 ML INFUS.BAG IVPB SCH ×2 (10:05→11:38)
[2023-07-22] MEDS ORDERED: SODIUM CHLORIDE 0.9%/KCL 20 MEQ/1,000 ML INFUS.BAG IV SCH (12:00)
[2023-07-22] MEDS: PIPERACILLIN/TAZOB 2.25 GM 2.25 GM in DEXTROSE 5%-WATER - 50 ML IVPB SCH ×2 (12:04→17:34)
[2023-07-22] MEDS ORDERED: KCL 20 MEQ IVPB ONE (12:15)
[2023-07-22] MEDS ORDERED: KCL 20 MEQ PREMIX BAG 100 ML IVPB ONE (12:30)
[2023-07-22] MEDS ORDERED: MAGNESIUM 1GM/D5W 100ML - 100 ML IVPB IVPB ONE (15:07)
[2023-07-22] MEDS: CHLORHEXIDINE GLUCONATE 4% CLEANSER FOR DECOLONIZATION TP SCH (22:10)
[2023-07-23] MEDS: PIPERACILLIN/TAZOB 2.25 GM 2.25 GM in DEXTROSE 5%-WATER - 50 ML IVPB SCH ×3 (02:05→18:16)
[2023-07-23] MEDS: HEPARIN NA (PORCINE) 5,000 UNITS/ML 1ML VIAL SQ SCH ×3 (06:53→21:20)
[2023-07-23] MEDS: VASOPRESSIN 40 UNITS/100 ML BAG IV SCH ×2 (07:05→23:13)
[2023-07-23 07:25] LABS: BASO % 0.5 % (0-2.0); HEMATOCRIT 29.4 % (32.4-45.2); HEMOGLOBIN 9.7 GM/dL (10.7-15.3); LYMPH % 9.8 % (8-40); MCH 26.1 pg (25.7-33.7); MCHC 32.9 g/dl (32.0-36.0); MEAN CELL VOLUME 79.4 fl (80-96); MEAN PLT VOLUME 7.9 fl (7.5-11.1); MONO % 9.7 % (3.8-10.2); PLATELET COUNT 346 10^3/uL (134-434); RDW 15.4 % (11.6-15.6); WHITE BLOOD COUNT 13.4 K/mm3 (4.0-10.0)
[2023-07-23 07:52] LABS: MAGNESIUM 2.1 mg/dL (1.8-2.4)
[2023-07-23] MEDS: CHOLECALCIFEROL (VIT D3) 1,000 UNIT (25 MCG) TABLET PO SCH (10:16)
[2023-07-23] MEDS: ARIPiprazole 15 MG TABLET PO SCH (10:16)
[2023-07-23] MEDS: ASCORBIC ACID 500 MG TABLET (FP) PO SCH (10:16)
[2023-07-23] MEDS: MUPIROCIN 2% TOPICAL OINTMENT FOR DECOLONIZATION NS SCH ×2 (10:17→21:20)
[2023-07-23] MEDS ORDERED: SODIUM CHLORIDE 1,000 ML IV STA (11:02)
[2023-07-23] MEDS ORDERED: SODIUM CHLORIDE 1,000 ML IV SCH (11:15)
[2023-07-23 11:36] LABS: POTASSIUM 3.4 mmol/L (3.5-5.1)
[2023-07-23 11:39] LABS: CALCIUM 7.7 mg/dL (8.5-10.1)
[2023-07-23 11:40] LABS: BLOOD UREA NITROGEN 78.6 mg/dL (7-18)
[2023-07-23 11:41] LABS: CREATININE 3.8 mg/dL (0.55-1.3)
[2023-07-23] MEDS: SODIUM CHLORIDE 1,000 ML IV SCH (11:43)
[2023-07-23] MEDS: CEFAZOLIN 1 GM in DEXTROSE 5%-WATER - 50 ML IVPB SCH (21:20)
[2023-07-23] MEDS: CHLORHEXIDINE GLUCONATE 4% CLEANSER FOR DECOLONIZATION TP SCH (21:21)
[2023-07-24] MEDS ORDERED: VASOPRESSIN 40 UNITS/100 ML BAG IV SCH (03:08)
[2023-07-24] MEDS: HEPARIN NA (PORCINE) 5,000 UNITS/ML 1ML VIAL SQ SCH ×3 (05:27→22:28)
[2023-07-24] MEDS ORDERED: POTASSIUM CHLORIDE ORAL LIQUID 20 MEQ/15 ML PO ONE (08:07)
[2023-07-24 08:45] VITALS: RESP 18
[2023-07-24] MEDS: ASCORBIC ACID 500 MG TABLET (FP) PO SCH (09:25)
[2023-07-24] MEDS: CEFAZOLIN 1 GM in DEXTROSE 5%-WATER - 50 ML IVPB SCH ×2 (09:25→22:28)
[2023-07-24] MEDS: CHOLECALCIFEROL (VIT D3) 1,000 UNIT (25 MCG) TABLET PO SCH (09:25)
[2023-07-24] MEDS: ARIPiprazole 5 MG TABLET PO SCH (09:49)
[2023-07-24] MEDS ORDERED: MUPIROCIN 2% TOPICAL OINTMENT FOR DECOLONIZATION NS SCH (10:00)
[2023-07-24 10:31] LABS: BASO % 0.5 % (0-2.0); EOS % 1.5 % (0-4.5); HEMATOCRIT 30.1 % (32.4-45.2); LYMPH % 13.2 % (8-40); MCH 26.3 pg (25.7-33.7); MCHC 33.4 g/dl (32.0-36.0); MEAN CELL VOLUME 78.7 fl (80-96); MEAN PLT VOLUME 7.4 fl (7.5-11.1); MONO % 7.8 % (3.8-10.2); PLATELET COUNT 390 10^3/uL (134-434); RBC 3.82 M/mm3 (3.60-5.2); RDW 15.9 % (11.6-15.6); WHITE BLOOD COUNT 10.2 K/mm3 (4.0-10.0)
[2023-07-24 10:49] LABS: POTASSIUM 3.9 mmol/L (3.5-5.1)
[2023-07-24 10:50] LABS: CALCIUM 7.9 mg/dL (8.5-10.1)
[2023-07-24 10:51] LABS: BLOOD UREA NITROGEN 65.9 mg/dL (7-18)
[2023-07-24 10:54] LABS: CREATININE 3.1 mg/dL (0.55-1.3)
[2023-07-24 15:06] LABS: URIC ACID 7.6 mg/dL (2.6-7.2)
[2023-07-24] MEDS ORDERED: HALOPERIDOL LACTATE 5 MG/ML IM PRN (15:48)
[2023-07-24] MEDS ORDERED: CHLORHEXIDINE GLUCONATE 4% CLEANSER FOR DECOLONIZATION TP SCH (22:00)
[2023-07-25] MEDS: HEPARIN NA (PORCINE) 5,000 UNITS/ML 1ML VIAL SQ SCH ×3 (05:54→22:30)
[2023-07-25] MEDS: SODIUM CHLORIDE 1,000 ML IV SCH ×3 (05:55→16:24)
[2023-07-25 10:13] LABS: BASO % 0.5 % (0-2.0); EOS % 2.2 % (0-4.5); HEMATOCRIT 31.2 % (32.4-45.2); LYMPH % 16.4 % (8-40); MCH 25.6 pg (25.7-33.7); MCHC 31.9 g/dl (32.0-36.0); MEAN CELL VOLUME 80.1 fl (80-96); MEAN PLT VOLUME 7.6 fl (7.5-11.1); MONO % 7.1 % (3.8-10.2); NEUT % 73.8 % (42.8-82.8); PLATELET COUNT 436 10^3/uL (134-434); RDW 16.1 % (11.6-15.6); WHITE BLOOD COUNT 9.5 K/mm3 (4.0-10.0)
[2023-07-25 10:33] LABS: ALBUMIN 1.8 g/dl (3.4-5.0); BLOOD UREA NITROGEN 57.5 mg/dL (7-18); CALCIUM 8.4 mg/dL (8.5-10.1)
[2023-07-25 10:34] LABS: MAGNESIUM 1.4 mg/dL (1.8-2.4)
[2023-07-25 10:36] LABS: CREATININE 2.7 mg/dL (0.55-1.3)
[2023-07-25 10:38] LABS: BILIRUBIN,TOTAL 0.2 mg/dL (0.2-1)
[2023-07-25 10:40] LABS: TOT PROT 5.9 g/dl (6.4-8.2)
[2023-07-25] MEDS: CEFAZOLIN 1 GM in DEXTROSE 5%-WATER - 50 ML IVPB SCH ×2 (10:41→22:29)
[2023-07-25] MEDS: CHOLECALCIFEROL (VIT D3) 1,000 UNIT (25 MCG) TABLET PO SCH (10:42)
[2023-07-25] MEDS: ARIPiprazole 5 MG TABLET PO SCH (10:42)
[2023-07-25] MEDS: ASCORBIC ACID 500 MG TABLET (FP) PO SCH (10:42)
[2023-07-25] MEDS ORDERED: MAGNESIUM 1GM/D5W - 1 GM/100 ML IVPB IVPB ONE (12:40)
[2023-07-26] MEDS: HEPARIN NA (PORCINE) 5,000 UNITS/ML 1ML VIAL SQ SCH ×3 (06:21→21:52)
[2023-07-26] MEDS: CHOLECALCIFEROL (VIT D3) 1,000 UNIT (25 MCG) TABLET PO SCH (09:46)
[2023-07-26] MEDS: ASCORBIC ACID 500 MG TABLET (FP) PO SCH (09:46)
[2023-07-26] MEDS: ARIPiprazole 5 MG TABLET PO SCH (09:46)
[2023-07-26] MEDS: CEFAZOLIN 1 GM in DEXTROSE 5%-WATER - 50 ML IVPB SCH ×2 (09:47→21:52)
[2023-07-26] MEDS ORDERED: ACETAMINOPHEN 325 MG TABLET (FP) PO PRN (10:53)
[2023-07-26 11:05] LABS: BASO % 0.7 % (0-2.0); EOS % 2.4 % (0-4.5); HEMATOCRIT 30.3 % (32.4-45.2); HEMOGLOBIN 10.2 GM/dL (10.7-15.3); LYMPH % 15.6 % (8-40); MCH 26.4 pg (25.7-33.7); MCHC 33.6 g/dl (32.0-36.0); MEAN CELL VOLUME 78.6 fl (80-96); MEAN PLT VOLUME 7.1 fl (7.5-11.1); MONO % 6.4 % (3.8-10.2); NEUT % 74.9 % (42.8-82.8); PLATELET COUNT 473 10^3/uL (134-434); RBC 3.86 M/mm3 (3.60-5.2); RDW 16.1 % (11.6-15.6); WHITE BLOOD COUNT 10.2 K/mm3 (4.0-10.0)
[2023-07-26 11:26] LABS: POTASSIUM 4.3 mmol/L (3.5-5.1)
[2023-07-26 11:38] LABS: CALCIUM 8.3 mg/dL (8.5-10.1)
[2023-07-26 11:39] LABS: BLOOD UREA NITROGEN 45.7 mg/dL (7-18)
[2023-07-26 11:42] LABS: CREATININE 2.1 mg/dL (0.55-1.3)
[2023-07-26] MEDS: LOPERAMIDE HCL 2 MG CAPSULE PO SCH ×2 (12:24→21:53)
[2023-07-26] MEDS: SODIUM CHLORIDE 1,000 ML IV SCH (12:25)
[2023-07-26] MEDS: NYSTATIN POWDER 100,000 UNITS/GM - 15 GM TOPICAL POWDER TP SCH ×2 (12:30→21:53)
[2023-07-26 13:39] VITALS: BMI 27.8
[2023-07-26] MEDS ORDERED: SODIUM BICARBONATE 650 MG TABLET PO ONE (16:16)
[2023-07-26] MEDS: LACTATED RINGERS SOLUTION 1,000 ML/1,000 ML INFUS.BAG IV SCH (16:37)
[2023-07-27] MEDS: LACTATED RINGERS SOLUTION 1,000 ML/1,000 ML INFUS.BAG IV SCH ×3 (06:33→21:22)
[2023-07-27] MEDS: HEPARIN NA (PORCINE) 5,000 UNITS/ML 1ML VIAL SQ SCH ×3 (06:35→21:22)
[2023-07-27 08:51] LABS: BASO % 0.9 % (0-2.0); EOS % 2.5 % (0-4.5); HEMATOCRIT 32.1 % (32.4-45.2); HEMOGLOBIN 10.3 GM/dL (10.7-15.3); LYMPH % 20.7 % (8-40); MCH 25.9 pg (25.7-33.7); MCHC 32.2 g/dl (32.0-36.0); MEAN CELL VOLUME 80.5 fl (80-96); MEAN PLT VOLUME 7.1 fl (7.5-11.1); MONO % 7.1 % (3.8-10.2); NEUT % 68.8 % (42.8-82.8); PLATELET COUNT 468 10^3/uL (134-434); RBC 3.98 M/mm3 (3.60-5.2); RDW 15.9 % (11.6-15.6); WHITE BLOOD COUNT 10.3 K/mm3 (4.0-10.0)
[2023-07-27 09:06] LABS: POTASSIUM 4.5 mmol/L (3.5-5.1)
[2023-07-27 09:12] LABS: CALCIUM 8.8 mg/dL (8.5-10.1)
[2023-07-27 09:13] LABS: ALBUMIN 1.8 g/dl (3.4-5.0); BLOOD UREA NITROGEN 42.8 mg/dL (7-18)
[2023-07-27 09:16] LABS: CREATININE 1.8 mg/dL (0.55-1.3)
[2023-07-27 09:17] LABS: TOT PROT 5.8 g/dl (6.4-8.2)
[2023-07-27 09:18] LABS: BILIRUBIN,TOTAL 0.1 mg/dL (0.2-1)
[2023-07-27] MEDS: CHOLECALCIFEROL (VIT D3) 1,000 UNIT (25 MCG) TABLET PO SCH (09:46)
[2023-07-27] MEDS: LOPERAMIDE HCL 2 MG CAPSULE PO SCH ×2 (09:46→21:22)
[2023-07-27] MEDS: ARIPiprazole 5 MG TABLET PO SCH (09:46)
[2023-07-27] MEDS: CEFAZOLIN 1 GM in DEXTROSE 5%-WATER - 50 ML IVPB SCH ×2 (09:46→21:21)
[2023-07-27] MEDS: ASCORBIC ACID 500 MG TABLET (FP) PO SCH (09:46)
[2023-07-27] MEDS: NYSTATIN POWDER 100,000 UNITS/GM - 15 GM TOPICAL POWDER TP SCH ×2 (09:47→21:58)
[2023-07-28] MEDS: HEPARIN NA (PORCINE) 5,000 UNITS/ML 1ML VIAL SQ SCH ×3 (05:59→21:09)
[2023-07-28] MEDS: ASCORBIC ACID 500 MG TABLET (FP) PO SCH (09:24)
[2023-07-28] MEDS: CHOLECALCIFEROL (VIT D3) 1,000 UNIT (25 MCG) TABLET PO SCH (09:24)
[2023-07-28] MEDS: CEFAZOLIN 1 GM in DEXTROSE 5%-WATER - 50 ML IVPB SCH ×2 (09:24→21:08)
[2023-07-28] MEDS: LOPERAMIDE HCL 2 MG CAPSULE PO SCH ×2 (09:24→21:09)
[2023-07-28] MEDS: NYSTATIN POWDER 100,000 UNITS/GM - 15 GM TOPICAL POWDER TP SCH ×2 (09:25→21:09)
[2023-07-28] MEDS: ARIPiprazole 5 MG TABLET PO SCH (09:25)
[2023-07-28 09:49] LABS: BASO % 0.9 % (0-2.0); EOS % 2.5 % (0-4.5); HEMATOCRIT 32.4 % (32.4-45.2); HEMOGLOBIN 10.5 GM/dL (10.7-15.3); LYMPH % 21.2 % (8-40); MCH 26.1 pg (25.7-33.7); MCHC 32.4 g/dl (32.0-36.0); MEAN CELL VOLUME 80.4 fl (80-96); MEAN PLT VOLUME 7.5 fl (7.5-11.1); MONO % 6.4 % (3.8-10.2); PLATELET COUNT 469 10^3/uL (134-434); RBC 4.03 M/mm3 (3.60-5.2); RDW 15.5 % (11.6-15.6); WHITE BLOOD COUNT 10.1 K/mm3 (4.0-10.0)
[2023-07-28 10:02] LABS: POTASSIUM 4.8 mmol/L (3.5-5.1)
[2023-07-28 10:06] LABS: BLOOD UREA NITROGEN 36.3 mg/dL (7-18)
[2023-07-28 10:09] LABS: CREATININE 1.7 mg/dL (0.55-1.3)
[2023-07-28] MEDS: LACTATED RINGERS SOLUTION 1,000 ML/1,000 ML INFUS.BAG IV SCH (17:23)
[2023-07-29] MEDS: HEPARIN NA (PORCINE) 5,000 UNITS/ML 1ML VIAL SQ SCH (05:39)
[2023-07-29] MEDS: LACTATED RINGERS SOLUTION 1,000 ML/1,000 ML INFUS.BAG IV SCH (07:15)
[2023-07-29 09:56] LABS: BASO % 1.1 % (0-2.0); HEMATOCRIT 32.8 % (32.4-45.2); HEMOGLOBIN 10.6 GM/dL (10.7-15.3); LYMPH % 23.8 % (8-40); MCHC 32.3 g/dl (32.0-36.0); MEAN CELL VOLUME 80.7 fl (80-96); MEAN PLT VOLUME 7.4 fl (7.5-11.1); MONO % 6.5 % (3.8-10.2); NEUT % 66.6 % (42.8-82.8); PLATELET COUNT 451 10^3/uL (134-434); RBC 4.07 M/mm3 (3.60-5.2); RDW 15.7 % (11.6-15.6); WHITE BLOOD COUNT 9.6 K/mm3 (4.0-10.0)
[2023-07-29 10:19] LABS: POTASSIUM 4.7 mmol/L (3.5-5.1)
[2023-07-29 10:20] LABS: CALCIUM 8.7 mg/dL (8.5-10.1)
[2023-07-29 10:21] LABS: BLOOD UREA NITROGEN 30.2 mg/dL (7-18)
[2023-07-29 10:24] LABS: CREATININE 1.6 mg/dL (0.55-1.3)
[2023-07-29] MEDS: LOPERAMIDE HCL 2 MG CAPSULE PO SCH (10:26)
[2023-07-29] MEDS: CEFAZOLIN 1 GM in DEXTROSE 5%-WATER - 50 ML IVPB SCH (10:26)
[2023-07-29] MEDS: CHOLECALCIFEROL (VIT D3) 1,000 UNIT (25 MCG) TABLET PO SCH (10:26)
[2023-07-29] MEDS: ASCORBIC ACID 500 MG TABLET (FP) PO SCH (10:26)
[2023-07-29] MEDS: NYSTATIN POWDER 100,000 UNITS/GM - 15 GM TOPICAL POWDER TP SCH (10:29)
[2023-07-29 10:31] VITALS: BP 112/68; PULSE 77; TEMP 98.3
[2023-07-29] MEDS: ARIPiprazole 5 MG TABLET PO SCH (10:48)
== END 2023-07-29 14:00 | DRG 871 ==
LOC: JER 13:05 → JERBED 15:21 → JICU 19:07 → J5S 07-24 02:22
PROVIDERS: ADMIT Internal Medicine Pulmonary Disease; ATTEND Internal Medicine
PROC: 02H633Z Insertion of Infusion Device into Right Atrium, Percutaneous Approach (ICD-10-PCS; principal; 2023-07-20)
PROC: B548ZZA Ultrasonography of Superior Vena Cava, Guidance (ICD-10-PCS; 2023-07-20)
DX: A41.59 Other Gram-negative sepsis (principal); R65.21 Severe sepsis with septic shock; E87.1 Hypo-osmolality and hyponatremia; N17.9 Acute kidney failure, unspecified; N39.0 Urinary tract infection, site not specified; E87.20 Acidosis, unspecified; F41.9 Anxiety disorder, unspecified; E87.6 Hypokalemia; E83.42 Hypomagnesemia; Z93.2 Ileostomy status
CPT/HCPCS: 0241U-QW; 36415; 36600; 70450-TC; 71045-TC-FY; 73610-TC-RT-FY; 76775-TC; 76937; 80048; 80053; 80061; 81003; 82308; 82436; 82550; 82553; 82570; 82803; 82962; 83036; 83605; 83735; 83930; 84100; 84133; 84300; 84484; 84540; 84550; 85025; 85610; 85730; 86140; 86850; 86900; 86901; 87040; 87086; 87186; 87635; 93005; 93010; 97116-GP; 97162-GP; 99291; J1644; J3490